=== PATIENT | male | born 1955 | race Caucasian/White ===

== ENCOUNTER 2021-07-09 10:12 | Outpatient (REF) | payer MEDICARE, BC, SELFPAY ==
[2021-07-09 11:25] LABS: Hematocrit 38.2 % (42-52); Hemoglobin 12.8 g/dl (14.0-18.0); Mean Corpuscular HGB Conc 33.5 g/dl (31.0-36.0); Mean Corpuscular Volume 92.5 fL (80-98); Platelet Count 258 X10*3/uL (160-400); Red Blood Count 4.13 X10*6/uL (4.60-5.80); Red Cell Distribution Width 12.8 % (11.0-16.0); White Blood Count 6.2 X10*3/uL (4.8-10.8)
[2021-07-09 11:43] LABS: Alanine Aminotransferase 21 U/L (0-40); Albumin Level 3.9 g/dL (3.5-5.0); Alkaline Phosphatase 86 U/L (39-117); Anion Gap 11 (12-20); Aspartate Amino Transferase 20 U/L (5-37); Bilirubin Total 0.7 mg/dL (0.0-1.0); Blood Urea Nitrogen 13 mg/dL (9-16); Calcium 9.1 mg/dL (8.4-10.2); Carbon Dioxide 28 mmol/L (22-29); Chloride 106 mmol/L (96-108); Cholesterol 156 mg/dL; Estimated Glomerular Filt Rate > 60; Glucose Fasting 140 mg/dL (60-99); HDL Cholesterol 49 mg/dL; LDL Cholesterol Calculated 97 mg/dl; Potassium 4.8 mmol/L (3.3-5.1); Sodium 140 mmol/L (135-145); Total Protein 6.3 g/dL (6.5-8.0); Triglycerides 52 mg/dL
[2021-07-09 12:03] LABS: Creatinine Urine 117.27 mg/dL; Microalbum/Creatinine Ratio Ur 200.3 ug/mg cr
[2021-07-09 12:08] LABS: Prostate Specific Antigen Scr 1.31 ng/mL (<0.05-4.0)
[2021-07-09 12:20] LABS: Estimated Average Glucose 163 mg/dL; Hemoglobin A1c % 7.3 %
== END 2021-07-09 10:13 | disposition home or self-care (01) ==
LOC: HO.HMGCLDS 10:12
PROVIDERS: PCP Internal Medicine; Visit Provider Internal Medicine
DX: Z00.00 Encounter for general adult medical examination without abnormal findings (principal); Z12.5 Encounter for screening for malignant neoplasm of prostate; E11.9 Type 2 diabetes mellitus without complications; E78.00 Pure hypercholesterolemia, unspecified; I10 Essential (primary) hypertension
CPT/HCPCS: 36415; 80053; 80061; 82043; 83036; 84153; 85027

== ENCOUNTER 2022-03-18 07:17 | Day surgery (SDC) | payer MEDICARE, BC, SELFPAY ==
[2022-03-12 13:30] VITALS: BMI 29.5
--- NOTE | 2022-03-17 11:46 | P.CONAN_ITS ---
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 Mother Heart disease Maternal Grandfather No problems noted. Maternal Grandmother No problems noted. Maternal Aunt No problems noted. Maternal Uncle No problems noted. Paternal Aunt No problems noted. Paternal Grandfather No problems noted. Paternal Grandmother No problems noted. Paternal Uncle No problems noted. Brother No problems noted. Brother No problems noted. Brother No problems noted. Brother No problems noted. Brother No problems noted. Sister No problems noted. Sister No problems noted. Son No problems noted. Son No problems noted. Son No problems noted. Son No problems noted. Surgical History Surgical History History of colonoscopy S/P drug eluting coronary stent placement Social History Social History Patient Tobacco Use Status: Former Tobacco user Quit Date: approx 20 yrs ago Tobacco use type: Cigarette Are you DNR?: No Advance Directives: No Advance Directives Information Provided: Yes Meds Allergies Allergy/AdvReac Type Severity Reaction Status Date / Time No Known Allergies Allergy Verified 07/08/21 11:59 Home Medications Medication Instructions Recorded Confirmed Last Taken Type carvedilol 12.5 mg tablet 12.5 mg PO BID 07/22/20 03/18/22 03/18/22 06:15 Histo ry insulin lispro 100 unit/mL unit subcut 07/22/20 07/08/21 Unknown History subcutaneous pen insulin lispro 100 unit/mL subcut 07/22/20 07/08/21 Unknown History subcutaneous solution lisinopril 5 mg tablet 5 mg PO DAILY 07/22/20 03/12/22 Unknown History blood sugar diagnostic (Contour #10 ea 07/08/21 07/08/21 Unknown History Next Test Strips) aspirin 81 mg tablet,delayed 81 mg PO DAILY 03/12/22 03/18/22 03/15/22 History release Exam Exam Date and Time: March 17, 2022 1146 Height,Weight and Vital Signs: Height 5 ft 8.5 in Weight 89.584 kg Assessment and Plan Assessment Anesthesia Assessment: Chart Reviewed
[2022-03-18 07:25] VITALS: BMI 29.9
[2022-03-18 08:05] VITALS: BP 140/67; PULSE 65; RESP 18; TEMP 36.1; O2SAT 100
[2022-03-18] MEDS: Lactated Ringers 1,000 ML 100 ML IVCONT (08:10)
--- NOTE | 2022-03-18 08:28 | P.CONAN_ITS ---
[facility] Active Problems Active Problems: All Active Problems (Updated 03/12/22 @ 13:52 by Masha Novoa RN) Annual physical exam (Acute) HTN (hypertension) (Acute) Hypercholesteremia (Acute) Diabetes (Acute) Past Medical History Medical History History of placement of stent in LAD coronary artery Mild anemia Myocardial infarct Retinopathy Family History Family History Father No problems noted. Mother Heart disease Maternal Grandfather No problems noted. Maternal Grandmother No problems noted. Maternal Aunt No problems noted. Maternal Uncle No problems noted. Paternal Aunt No problems noted. Paternal Grandfather No problems noted. Paternal Grandmother No problems noted. Paternal Uncle No problems noted. Brother No problems noted. Brother No problems noted. Brother No problems noted. Brother No problems noted. Brother No problems noted. Sister No problems noted. Sister No problems noted. Son No problems noted. Son No problems noted. Son No problems noted. Son No problems noted. Family history of problems with anesthesia: No Surgical History Surgical History History of colonoscopy S/P drug eluting coronary stent placement Social History Social History Patient Tobacco Use Status: Former Tobacco user Quit Date: approx 20 yrs ago Tobacco use type: Cigarette Are you DNR?: No Advance Directives: No Advance Directives Information Provided: Yes Meds Allergies Allergy/AdvReac Type Severity Reaction Status Date / Time No Known Allergies Allergy Verified 07/08/21 11:59 Active Medications: Current Medications Lactated Ringer's (Lr) 1,000 mls @ 100 mls/hr IVCONT .Q10H ASIMA Last Admin: 03/18/22 08:10 Dose: 100 mls/hr Sodium Biphosphate/Sodium Phosphate (Sodium Phosphate,[place]-Dibasic 133 Ml Enema) 133 ml SC ONCE PRN PRN Reason: Poor Colonoscopy Prep Results Home Medications Medication Instructions Recorded Confirmed Last Taken Type carvedilol 12.5 mg tablet 12.5 mg PO BID 07/22/20 03/18/22 03/18/22 06:15 History insulin lispro 100 unit/mL unit subcut 10/19/20 10/05/21 Unknown History subcutaneous pen insulin lispro 100 unit/mL subcut 07/22/20 07/08/21 Unknown History subcutaneous solution lisinopril 5 mg tablet 5 mg PO DAILY 07/22/20 03/12/22 Unknown History blood sugar diagnostic (Contour #10 ea 07/08/21 07/08/21 Unknown History Next Test Strips) aspirin 81 mg tablet,delayed 81 mg PO DAILY 03/12/22 03/18/22 03/15/22 History release Exam Exam Date and Time: March 18, 2022827 Height,Weight and Vital Signs: Height 5 ft 8.5 in Weight 90.718 kg Last Vital Signs Temp 97 F 03/18/22 08:05 Pulse 65 03/18/22 08:05 Resp 18 03/18/22 08:05 BP 140/67 H 03/18/22 08:05 Pulse Ox 100 03/18/22 08:05 O2 Del Method 03/18/22 08:05 Airway Mallampati Class: III TM Dist: >3cm Neck ROM: Full Denture: Upper and Lower Assessment and Plan Final Anesthetic Review Family History of Problems with Anesthesia: No Anesthetic Plan Anesthetic Plan: MAC: Disposition: Standard PACU
[2022-03-18 09:52] VITALS: BP 114/55; PULSE 71; RESP 18; TEMP 36.6; O2SAT 99
--- NOTE | 2022-03-18 09:52 | PM.OP ---
Brief Operative Note Date of Service: 03/18/22 Pre-op diagnosis: Screening Post-op diagnosis: other (Colon polyps) Procedure: Colonoscopy to the cecum with hot snare polypectomy of AC polyp with placement of 2 Resolution clips, and bx/removal of cecal polyp Surgeon: Milton Ramirez Anesthesia: MAC Was an Gas Leak Inspector Helper used for this Procedure?: No Estimated blood loss (mL): 2.0 Pathology: other (A. Cecal polyp B. Ascending colon polyp) Condition: stable Disposition: PACU
[2022-03-18 09:58] VITALS: BP 130/58; PULSE 68; RESP 18; TEMP 36.1; O2SAT 100
--- NOTE | 2022-03-18 10:14 | OP_ITS ---
SURGEON: Milton Ramirez MD INDICATIONS: The patient presents for evaluation of colorectal cancer screening and prior history of tubular adenoma of the colon. Full consent was obtained from him for this, including risks of bleeding and perforation. PREOPERATIVE DIAGNOSIS: POSTOPERATIVE DIAGNOSIS: PROCEDURE PERFORMED: Colonoscopy to cecum with biopsies and removal of polyp, and hot snare polypectomy with placement of Resolution Clips. ESTIMATED BLOOD LOSS: COMPLICATIONS: ANESTHESIA: Monitored anesthesia care. ASSISTANTS: SPECIMENS: PREOPERATIVE DIAGNOSES: Colorectal cancer screening and personal history of tubular adenoma of the colon. POSTOPERATIVE DIAGNOSES: Colorectal cancer screening and personal history of tubular adenoma of the colon, diverticulosis, and small internal hemorrhoids. DESCRIPTION OF PROCEDURE: The patient was placed in the left lateral decubitus position. The digital rectal exam revealed no abnormalities. The Olympus video pediatric colonoscope was entered into the rectum and advanced to the cecum with the assistance of abdominal wall pressure. Once in the cecum, I did identify cecal pouch with appendiceal orifice and a normal-appearing ileocecal valve. The entire cecum was well visualized. In the cecum was a flat approximately 4 or 5 mm polyp, which was removed completely with cold biopsy forceps. The remainder of the cecum, including the appendiceal orifice, appeared normal. The scope was then slowly withdrawn assessing all mucosal surfaces carefully. The ileocecal valve appeared normal. The preparation was excellent. In the proximal ascending colon was an approximately 8 mm polyp, which was removed by hot snare polypectomy and recovered by suction. The polypectomy site appeared clean, without any sign of residual polyp nor bleeding. Two Resolution Clips were applied to the polypectomy site given that he had to go back on aspirin. There was good deployment and good hemostasis. I did not visualize any other polyps, colitis, or angiodysplasia. There was a mild amount of sigmoid diverticulosis. In the rectum, scope was retroflexed visualizing small internal hemorrhoids, but no other pathology. The rectal mucosa appeared normal. Scope was straightened and withdrawn from the patient. He tolerated the procedure well and was returned to recovery area in stable condition. IMPRESSION: 1. Colon polyps. 2. Diverticulosis. 3. Internal hemorrhoids. PLAN: The results of the pathology will be checked. I would recommend a repeat colonoscopy in 5 years for surveillance. He was advised to not use fish oil for 1 week. He was advised to resume his aspirin within 48 hours. He will otherwise see me on a p.r.n. basis. This has been discussed with his . MD [facility]/JOEL / [phone]
[2022-03-18 10:35] LABS: Glucose, Whole Blood 87 mg/dL (60-115)
== END 2022-03-18 11:45 | disposition home or self-care (01) ==
PROVIDERS: PCP Internal Medicine; Visit Provider Internal Medicine
PROC: 0DJD8ZZ Inspection of Lower Intestinal Tract, Via Natural or Artificial Opening Endoscopic (ICD-10-PCS; CPT 45378; principal; 2022-03-18 08:30)
DX: Z12.11 Encounter for screening for malignant neoplasm of colon (principal); Z86.010 Personal history of colon polyps; D12.0 Benign neoplasm of cecum; D12.2 Benign neoplasm of ascending colon; K57.30 Diverticulosis of large intestine without perforation or abscess without bleeding; K64.8 Other hemorrhoids; I25.2 Old myocardial infarction; Z95.5 Presence of coronary angioplasty implant and graft; I10 Essential (primary) hypertension; D64.9 Anemia, unspecified; E78.5 Hyperlipidemia, unspecified; E10.319 Type 1 diabetes mellitus with unspecified diabetic retinopathy without macular edema; E10.40 Type 1 diabetes mellitus with diabetic neuropathy, unspecified; Z79.4 Long term (current) use of insulin; Z96.41 Presence of insulin pump (external) (internal); Z79.82 Long term (current) use of aspirin; Z79.899 Other long term (current) drug therapy; Z87.891 Personal history of nicotine dependence
CPT/HCPCS: 45385; 45380; 82947; 88305

== ENCOUNTER 2022-08-15 09:10 | Outpatient (REF) | payer MEDICARE, BC, SELFPAY ==
[2022-08-15 11:49] LABS: MANUAL DIFF FLAG NO
[2022-08-15 11:54] LABS: Basophils Absolute Auto 0.1 X10*3/uL (0.0-0.2); Basophils Percent Auto 0.8 % (0-2); Eosinophils Absolute Auto 0.2 X10*3/uL (0.0-0.4); Eosinophils Percent Auto 3.1 % (0-4); Hematocrit 36.2 % (42.0-52.0); Hemoglobin 12.4 g/dl (14.0-18.0); Imm Gran Abs Auto 0.02 X10*3/uL (0.00-0.03); Imm Gran Pct Auto 0.3 % (0.0-0.4); Lymphocytes Absolute Auto 1.4 X10*3/uL (1.2-4.9); Mean Corpuscular HGB Conc 34.3 g/dl (31.0-36.0); Mean Corpuscular Hemoglobin 31.5 pg (27.0-33.0); Mean Corpuscular Volume 91.9 fL (80.0-98.0); Mean Platelet Volume 11.3 fL (9.4-12.4); Monocytes Absolute Auto 0.4 X10*3/uL (0.1-1.2); Monocytes Percent Auto 6.6 % (2-11); Neutrophils Absolute Auto 4.2 x10*3/uL (2.0-8.3); Neutrophils Percent Auto 67.2 % (45-73); Platelet Count 227 X10*3/uL (160-400); Red Blood Count 3.94 X10*6/uL (4.60-5.80); Red Cell Distribution Width 12.6 % (11.0-16.0); White Blood Count 6.2 X10*3/uL (4.8-10.8)
[2022-08-15 11:57] LABS: Appearance Urine Clear; Color Urine Yellow; Glucose Urine UA Negative (Negative); Leukocyte Esterase Urine Negative (Negative); Nitrite Urine Negative (Negative); Specific Gravity - Urine 1.015 (1.005-1.025); UMIC TRIGGER UA YES; Urine Blood Small (1+) (Negative); Urine Ketones Negative (Negative); Urine Protein 100 (2+) mg/dL (Neg-Trace)
[2022-08-15 12:06] LABS: Estimated Average Glucose 163 mg/dL; Hemoglobin A1c % 7.3 %
[2022-08-15 12:17] LABS: Bacteria Urine None Seen (None Seen); Hyaline Casts Urine 0-2 /LPF (0-2); RBC Urine 0-2 /HPF (0-2); Squamous Epithelial Cell Urine 0-2 /HPF (0-2); WBC Urine 0-5 /HPF (0-5)
[2022-08-15 12:21] LABS: Creatinine Urine 161.44 mg/dL; Microalbum/Creatinine Ratio Ur 180.8 ug/mg cr
[2022-08-15 12:25] LABS: Alanine Aminotransferase 23 U/L (0-40); Albumin Level 3.9 g/dL (3.5-5.0); Alkaline Phosphatase 86 U/L (39-117); Anion Gap 14 (12-20); Aspartate Amino Transferase 23 U/L (5-37); Bilirubin Total 0.6 mg/dL (0.0-1.0); Blood Urea Nitrogen 16 mg/dL (9-16); Calcium 8.9 mg/dL (8.4-10.2); Carbon Dioxide 24 mmol/L (22-29); Chloride 104 mmol/L (96-108); Cholesterol 166 mg/dL; Estimated Glomerular Filt Rate > 60; Glucose Fasting 177 mg/dL (60-99); HDL Cholesterol 52 mg/dL; LDL Cholesterol Calculated 99 mg/dl; Potassium 4.4 mmol/L (3.3-5.1); Sodium 138 mmol/L (135-145); Total Protein 6.3 g/dL (6.5-8.0); Triglycerides 76 mg/dL
[2022-08-15 12:27] LABS: PSA,Total (Free>4and<10) 1.03 ng/mL (0.00-4.00)
== END 2022-08-15 09:11 | disposition home or self-care (01) ==
LOC: HO.HMGCLDS 09:10
PROVIDERS: PCP Internal Medicine; Visit Provider Internal Medicine
DX: Z00.00 Encounter for general adult medical examination without abnormal findings (principal); E11.9 Type 2 diabetes mellitus without complications; E78.00 Pure hypercholesterolemia, unspecified; I10 Essential (primary) hypertension; I21.9 Acute myocardial infarction, unspecified; Z12.5 Encounter for screening for malignant neoplasm of prostate
CPT/HCPCS: 36415; 80053; 80061; 81001; 82043; 83036; 84153; 85025

== ENCOUNTER 2023-02-13 10:11 | Outpatient (REF) | payer MEDICARE, BC, SELFPAY ==
[2023-02-13 11:30] LABS: MANUAL DIFF FLAG NO
[2023-02-13 11:32] LABS: Basophils Absolute Auto 0.1 X10*3/uL (0.0-0.2); Basophils Percent Auto 0.9 % (0-2); Eosinophils Absolute Auto 0.2 X10*3/uL (0.0-0.4); Eosinophils Percent Auto 2.6 % (0-4); Hematocrit 36.4 % (42.0-52.0); Hemoglobin 12.5 g/dl (14.0-18.0); Imm Gran Abs Auto 0.02 X10*3/uL (0.00-0.03); Imm Gran Pct Auto 0.3 % (0.0-0.4); Lymphocytes Absolute Auto 1.6 X10*3/uL (1.2-4.9); Lymphocytes Percent Auto 24.4 % (20-40); Mean Corpuscular HGB Conc 34.3 g/dl (31.0-36.0); Mean Corpuscular Hemoglobin 32.6 pg (27.0-33.0); Monocytes Absolute Auto 0.6 X10*3/uL (0.1-1.2); Monocytes Percent Auto 9.3 % (2-11); Neutrophils Absolute Auto 4.1 x10*3/uL (2.0-8.3); Neutrophils Percent Auto 62.5 % (45-73); Platelet Count 247 X10*3/uL (160-400); Red Blood Count 3.83 X10*6/uL (4.60-5.80); Red Cell Distribution Width 13.3 % (11.0-16.0); White Blood Count 6.6 X10*3/uL (4.8-10.8)
[2023-02-13 11:42] LABS: Estimated Average Glucose 163 mg/dL; Hemoglobin A1c % 7.3 %
[2023-02-13 11:57] LABS: Creatinine Urine 175.43 mg/dL; Microalbum/Creatinine Ratio Ur 87.2 ug/mg cr
[2023-02-13 12:11] LABS: Alanine Aminotransferase 21 U/L (0-40); Albumin Level 3.9 g/dL (3.5-5.0); Alkaline Phosphatase 83 U/L (39-117); Anion Gap 12 (12-20); Aspartate Amino Transferase 22 U/L (5-37); Bilirubin Total 0.9 mg/dL (0.0-1.0); Blood Urea Nitrogen 16 mg/dL (9-16); Calcium 9.2 mg/dL (8.4-10.2); Carbon Dioxide 28 mmol/L (22-29); Chloride 107 mmol/L (96-108); Cholesterol 168 mg/dL; Estimated Glomerular Filt Rate > 60; Glucose Fasting 152 mg/dL (60-99); HDL Cholesterol 52 mg/dL; Iron 115 mcg/dL (45-160); LDL Cholesterol Calculated 104 mg/dl; Percent Iron Saturation 42 % (15-50); Potassium 5.7 mmol/L (3.3-5.1); Sodium 141 mmol/L (135-145); Total Iron Binding Capacity 276 mcg/dL (228-428); Total Protein 6.1 g/dL (6.5-8.0); Triglycerides 61 mg/dL; Unsaturated Iron Binding 161 ug/dL
[2023-02-13 12:30] LABS: Folate 17.6 ng/mL (> or = 4.0); Vitamin B12 962 pg/mL (200-900)
== END 2023-02-13 10:12 | disposition home or self-care (01) ==
LOC: HO.HMGCLDS 10:11
PROVIDERS: PCP Internal Medicine; Visit Provider Internal Medicine
DX: D64.9 Anemia, unspecified (principal); E11.9 Type 2 diabetes mellitus without complications; E78.00 Pure hypercholesterolemia, unspecified; I10 Essential (primary) hypertension
CPT/HCPCS: 36415; 80053; 80061; 82043; 82607; 82746; 83036; 83540; 85025

== ENCOUNTER 2023-02-15 12:39 | Outpatient (REF) | payer MEDICARE, BC, SELFPAY ==
[2023-02-15 14:16] LABS: Anion Gap 11 (12-20); Blood Urea Nitrogen 17 mg/dL (9-16); Calcium 9.7 mg/dL (8.4-10.2); Carbon Dioxide 31 mmol/L (22-29); Chloride 103 mmol/L (96-108); Estimated Glomerular Filt Rate > 60; Glucose Random 166 mg/dL (60-115); Sodium 139 mmol/L (135-145)
== END 2023-02-15 12:40 | disposition home or self-care (01) ==
LOC: HO.HMGCLDS 12:39
PROVIDERS: PCP Internal Medicine; Visit Provider Internal Medicine
DX: E78.00 Pure hypercholesterolemia, unspecified (principal); I10 Essential (primary) hypertension; R80.9 Proteinuria, unspecified; E11.9 Type 2 diabetes mellitus without complications
CPT/HCPCS: 36415; 80048

== ENCOUNTER 2023-02-17 10:20 | Outpatient (REF) | payer MEDICARE, BC, SELFPAY ==
[2023-02-17 14:07] LABS: Potassium 5.3 mmol/L (3.3-5.1)
== END 2023-02-17 10:21 | disposition home or self-care (01) ==
LOC: HO.HMGCLDS 10:20
PROVIDERS: PCP Internal Medicine; Visit Provider Internal Medicine
DX: E87.5 Hyperkalemia (principal)
CPT/HCPCS: 36415; 84132

== ENCOUNTER 2023-02-25 11:25 | Outpatient (REF) | payer MEDICARE, BC, SELFPAY ==
[2023-02-25 13:59] LABS: Potassium 5.9 mmol/L (3.3-5.1)
== END 2023-02-25 11:26 | disposition home or self-care (01) ==
LOC: HO.HMGCLDS 11:25
PROVIDERS: PCP Internal Medicine; Visit Provider Internal Medicine
DX: E87.5 Hyperkalemia (principal)
CPT/HCPCS: 36415; 84132

== ENCOUNTER 2023-03-04 11:29 | Outpatient (REF) | payer MEDICARE, BC, SELFPAY ==
[2023-03-04 14:58] LABS: Potassium 5.5 mmol/L (3.3-5.1)
== END 2023-03-04 11:30 | disposition home or self-care (01) ==
LOC: HO.HMGCLDS 11:29
PROVIDERS: PCP Internal Medicine; Visit Provider Internal Medicine
DX: E87.5 Hyperkalemia (principal)
CPT/HCPCS: 36415; 84132

== ENCOUNTER 2023-03-11 11:50 | Outpatient (REF) | payer MEDICARE, BC, SELFPAY ==
[2023-03-11 14:21] LABS: Anion Gap 11 (12-20); Blood Urea Nitrogen 14 mg/dL (9-16); Calcium 9.5 mg/dL (8.4-10.2); Carbon Dioxide 30 mmol/L (22-29); Chloride 108 mmol/L (96-108); Estimated Glomerular Filt Rate > 60; Glucose Random 153 mg/dL (60-115); Potassium 4.9 mmol/L (3.3-5.1); Sodium 144 mmol/L (135-145)
== END 2023-03-11 11:51 | disposition home or self-care (01) ==
LOC: HO.HMGCLDS 11:50
PROVIDERS: PCP Internal Medicine; Visit Provider Internal Medicine
DX: E87.5 Hyperkalemia (principal)
CPT/HCPCS: 36415; 80048

== ENCOUNTER 2023-03-19 11:43 | Outpatient (REF) | payer MEDICARE, BC, SELFPAY ==
[2023-03-19 18:49] LABS: Anion Gap 17 (12-20); Blood Urea Nitrogen 12 mg/dL (9-16); Calcium 9.4 mg/dL (8.4-10.2); Carbon Dioxide 24 mmol/L (22-29); Chloride 107 mmol/L (96-108); Estimated Glomerular Filt Rate > 60; Glucose Random 196 mg/dL (60-115); Potassium 5.2 mmol/L (3.3-5.1); Sodium 143 mmol/L (135-145)
== END 2023-03-19 11:44 | disposition home or self-care (01) ==
LOC: HO.HMGCLDS 11:43
PROVIDERS: PCP Internal Medicine; Visit Provider Internal Medicine
DX: E87.5 Hyperkalemia (principal)
CPT/HCPCS: 36415; 80048

== ENCOUNTER 2023-03-25 09:46 | Outpatient (REF) | payer MEDICARE, BC, SELFPAY ==
[2023-03-25 11:54] LABS: Anion Gap 12 (12-20); Blood Urea Nitrogen 18 mg/dL (9-16); Calcium 9.3 mg/dL (8.4-10.2); Carbon Dioxide 29 mmol/L (22-29); Chloride 106 mmol/L (96-108); Estimated Glomerular Filt Rate > 60; Glucose Random 145 mg/dL (60-115); Potassium 5.1 mmol/L (3.3-5.1); Sodium 142 mmol/L (135-145)
== END 2023-03-25 09:47 | disposition home or self-care (01) ==
LOC: HO.HMGCLDS 09:46
PROVIDERS: PCP Internal Medicine; Visit Provider Internal Medicine
DX: E87.5 Hyperkalemia (principal)
CPT/HCPCS: 36415; 80048

== ENCOUNTER 2023-04-08 11:08 | Outpatient (REF) | payer MEDICARE, BC, SELFPAY ==
[2023-04-08 15:56] LABS: Alanine Aminotransferase 25 U/L (0-40); Alkaline Phosphatase 105 U/L (39-117); Anion Gap 16 (12-20); Aspartate Amino Transferase 24 U/L (5-37); Bilirubin Total 0.7 mg/dL (0.0-1.0); Blood Urea Nitrogen 20 mg/dL (9-16); Calcium 10.1 mg/dL (8.4-10.2); Carbon Dioxide 27 mmol/L (22-29); Chloride 104 mmol/L (96-108); Estimated Glomerular Filt Rate 59; Glucose Random 184 mg/dL (60-115); Potassium 6.3 mmol/L (3.3-5.1); Sodium 141 mmol/L (135-145)
[2023-04-08 16:57] LABS: B Type Natriuretic Peptide 51 pg/mL (<100)
== END 2023-04-08 11:09 | disposition home or self-care (01) ==
LOC: HO.HMGCLDS 11:08
PROVIDERS: PCP Internal Medicine; Visit Provider Internal Medicine
DX: Z13.89 Encounter for screening for other disorder (principal)
CPT/HCPCS: 36415; 80053; 83880

== ENCOUNTER 2023-04-08 18:23 | Emergency (ER) | payer MEDICARE, BC, SELFPAY ==
[2023-04-08 18:54] VITALS: BP 173/69; PULSE 75; RESP 16; TEMP 36.6; O2SAT 96; BMI 30.4
--- NOTE | 2023-04-08 18:55 | ED.GENADULT ---
HPI - General Adult General Chief complaint: Recheck/Abnormal Lab/Rx Stated complaint: Sent by Dr Time Seen by Provider: 04/08/23 19:56 Source: patient and family () Mode of arrival: ambulatory History of Present Illness HPI narrative: 67-year-old male with history a diabetes and hypertension presents with persistent issues of elevated potassium with intermittent adjustment and medications to help address the value. Most recently patient has been started on Lasix and given Kayexalate. Patient states that he woke up feeling fatigued this morning with some associated chest tightness but denies any muscle cramping. Related Data Home Medications Medication Instructions Recorded Confirmed carvedilol 12.5 mg tablet 12.5 mg PO BID 07/22/20 03/25/23 insulin lispro 100 unit/mL unit subcut 07/22/20 03/25/23 subcutaneous pen insulin lispro 100 unit/mL subcut 07/22/20 03/25/23 subcutaneous solution blood sugar diagnostic (Contour #10 ea 07/08/21 03/25/23 Next Test Strips) aspirin 81 mg tablet,delayed 81 mg PO DAILY 03/12/22 03/25/23 release Previous Rx's Medication Instructions Recorded atorvastatin 40 mg tablet 40 mg PO DAILY #90 tabs 08/05/22 atorvastatin 80 mg tablet 80 mg PO DAILY #90 tabs 02/15/23 furosemide 20 mg tablet (Lasix) 20 mg PO DAILY #60 tabs 03/22/23 Allergies Allergy/AdvReac Type Severity Reaction Status Date / Time No Known Allergies Allergy Verified 04/08/23 18:54 Review of Systems Review of Systems: Pertinent positives and negatives as stated in HPI [facility] Past Medical History Source: nursing notes reviewed Medical History Annual physical exam Diabetes History of placement of stent in LAD coronary artery HTN (hypertension) Hypercholesteremia Mild anemia Myocardial infarct Retinopathy Surgical History History of colonoscopy S/P drug eluting coronary stent placement Family History Family History Father No problems noted. Mother Heart disease Maternal Grandfather No problems noted. Maternal Grandmother No problems noted. Maternal Aunt No problems noted. Maternal Uncle No problems noted. Paternal Aunt No problems noted. Paternal Grandfather No problems noted. Paternal Grandmother No problems noted. Paternal Uncle No problems noted. Brother No problems noted. Brother No problems noted. Brother No problems noted. Brother No problems noted. Brother No problems noted. Sister No problems noted. Sister No problems noted. Son No problems noted. Son No problems noted. Son No problems noted. Son No problems noted. Social History Social History Housing: House Alcohol intake: never Patient Tobacco Use Status: Former Tobacco user Quit Date: approx 20 yrs ago Tobacco use type: Cigarette Smoked in Last 30 Days: No e-Cigarette/Vaping Use: Never Used Use of substances other than those prescribed or required for medical reasons: No Advance Directives: No Advance Directives Information Provided: No Current occupational status: retired Cognitive needs: No Hearing needs: No Vision needs: Yes Physical Exam ED Vital Signs: Vital Signs - 24 hr 04/08/23 18:54 04/08/23 19:57 Temperature 97.8 F 98.1 F Pulse Rate 75 64 Respiratory Rate 16 10 L Blood Pressure 173/69 H 139/59 L Pulse Oximetry 96 97 Oxygen Delivery Method Room Air Room Air BMI result Body Mass Index 30.4 VITAL SIGNS: Reviewed. GENERAL: Well developed, well nourished, in no acute distress. HEAD: Normocephalic/atraumatic EYES: PERRLA, EOMI EARS: Ext canals without abnormality NOSE: Nares patent bilateral OROPHARYNX: no oral lesions noted, posterior pharynx clear NECK: Supple, no adenopathy LUNGS: Normal breath sounds. No adventitious sounds or accessory muscle use. SpO2<97> CARDIOVASCULAR: Regular rate and rhythm without noted murmurs ABDOMEN: Soft, non-tender, non-distended with bowel sounds. MUSCULOSKELETAL: No tenderness, deformities, or effusions noted on gross inspection. EXTREMITIES: No cyanosis, clubbing or edema. SKIN: Inspection of the skin reveals no rashes NEUROLOGIC: Alert and oriented x 4. Strength and sensation to light touch were grossly intact x 4. Course Course Course Narrative: This is an RME: Additional HPI, ROS, PE not included below will be deferred to primary provider. This is a 59-bbce-oxw-male, with a past medical history of GA with stent, HTN, hypercholesteremia, diabetes and insulin pump, presenting to the emergency department with a complaint of hyperkalemia. He has been followed by his PCP for high potassium, found to be elevated at 5.2 on 03/19/23, improved at 5.1 on 03/25, today was 6.3. Reporting chest pressure. No palpitations. Plan: Labs, EKG, chest x-ray Medications Administered Discontinued Medications Generic Name Dose Route Start Last Admin Trade Name Freq PRN Reason Stop Dose Admin Sodium Zirconium Cyclosilicate 10 gm 04/08/23 19:55 04/08/23 20:14 Sodium Zirconium Cyclosilicate 10 Gm Powd.Pack PO 04/08/23 19:56 10 gm ONCE ONE Administration Medical Decision Making Medical Decision Making MDM Narrative: 67-year-old male with history and clinical presentation, DD X: Medication side effect, medication interactions, ALESSANDRA, ACS, pneumonia. Review of all investigations demonstrates chronically stable hematologic values. Chemistries demonstrate a down trend to the potassium levels with mild worsening of renal function, troponins are flat. Patient received 10 mg of Lokelma and repeat basic metabolic panel demonstrates a potassium 4.3 with mild improvement of renal function. He is otherwise discharged home in stable condition with instructions to follow-up with primary care provider do explicitly request a referral to follow-up with nephrology. In the interim he will continue to take the Kayexalate as well as the diuretic. Differential Diagnosis Please see the discussion above Admission/Observation Consideration of admission/observation: Escalation of care including admission/observation considered Lab Data Please see the discussion above 04/08/23 19:03 04/08/23 21:43 Labs: Lab Results 04/08/23 04/08/23 04/08/23 Range/Units 19:03 19:03 19:03 WBC 10.1 (4.8-10.8) X10*3/uL RBC 3.98 L (4.60-5.80) X10*6/uL Hgb 12.9 L (14.0-18.0) g/dl Hct 37.0 L (42.0-52.0) % MCV 93.0 (80.0-98.0) fL MCH 32.4 (27.0-33.0) pg MCHC 34.9 (31.0-36.0) g/dl RDW 12.3 (11.0-16.0) % Plt Count 237 (160-400) X10*3/uL MPV 10.5 (9.4-12.4) fL Immature Gran % (Auto) 0.3 (0.0-0.4) % Neut % (Auto) 65.0 (45-73) % Lymph % (Auto) 24.8 (20-40) % [place] % (Auto) 6.9 (2-11) % Eos % (Auto) 2.3 (0-4) % Baso % (Auto) 0.7 (0-2) % Lymph # (Auto) 2.5 (1.2-4.9) X10*3/uL [place] # (Auto) 0.7 (0.1-1.2) X10*3/uL Eos # (Auto) 0.2 (0.0-0.4) X10*3/uL Baso # (Auto) 0.1 (0.0-0.2) X10*3/uL Abs Immat Gran (auto) 0.03 (0.00-0.03) X10*3/uL Absolute Neuts (auto) 6.6 (2.0-8.3) x10*3/uL Absolute Nucleated RBC 0.000 (0.0-0.012) X10*3/uL Nucleated RBC % (auto) 0.0 (0.0-0.2) /100WBC Sodium 140 (135-145) mmol/L Potassium 5.4 H (3.3-5.1) mmol/L Chloride 104 (96-108) mmol/L Carbon Dioxide 25 (22-29) mmol/L Anion Gap 16 (12-20) BUN 25 H (9-16) mg/dL Creatinine 1.29 (0.5-1.4) mg/dL Estim Creat Clear Calc 59.1 Estimated GFR 55 Random Glucose 198 H (60-115) mg/dL Calcium 10.2 (8.4-10.2) mg/dL Magnesium 1.9 (1.6-2.6) mg/dL Total Bilirubin 0.5 (0.0-1.0) mg/dL Direct Bilirubin 0.1 (0.0-0.5) mg/dL AST 28 (5-37) U/L ALT 25 (0-40) U/L Alkaline Phosphatase 110 (39-117) U/L Troponin I High Sens 13.3 (<3.5-35.0) ng/L Total Protein 7.1 (6.5-8.0) g/dL Albumin 4.1 (3.5-5.0) g/dL 04/08/23 04/08/23 Range/Units 21:43 21:43 WBC (4.8-10.8) X10*3/uL RBC (4.60-5.80) X10*6/uL Hgb (14.0-18.0) g/dl Hct (42.0-52.0) % MCV (80.0-98.0) fL MCH (27.0-33.0) pg MCHC (31.0-36.0) g/dl RDW (11.0-16.0) % Plt Count (160-400) X10*3/uL MPV (9.4-12.4) fL Immature Gran % (Auto) (0.0-0.4) % Neut % (Auto) (45-73) % Lymph % (Auto) (20-40) % [place] % (Auto) (2-11) % Eos % (Auto) (0-4) % Baso % (Auto) (0-2) % Lymph # (Auto) (1.2-4.9) X10*3/uL [place] # (Auto) (0.1-1.2) X10*3/uL Eos # (Auto) (0.0-0.4) X10*3/uL Baso # (Auto) (0.0-0.2) X10*3/uL Abs Immat Gran (auto) (0.00-0.03) X10*3/uL Absolute Neuts (auto) (2.0-8.3) x10*3/uL Absolute Nucleated RBC (0.0-0.012) X10*3/uL Nucleated RBC % (auto) (0.0-0.2) /100WBC Sodium 140 (135-145) mmol/L Potassium 4.3 D (3.3-5.1) mmol/L Chloride 106 (96-108) mmol/L Carbon Dioxide 24 (22-29) mmol/L Anion Gap 14 (12-20) BUN 22 H (9-16) mg/dL Creatinine 1.05 (0.5-1.4) mg/dL Estim Creat Clear Calc 72.6 Estimated GFR > 60 Random Glucose 99 (60-115) mg/dL Calcium 9.7 (8.4-10.2) mg/dL Magnesium (1.6-2.6) mg/dL Total Bilirubin (0.0-1.0) mg/dL Direct Bilirubin (0.0-0.5) mg/dL AST (5-37) U/L ALT (0-40) U/L Alkaline Phosphatase (39-117) U/L Troponin I High Sens 16.6 (<3.5-35.0) ng/L Total Protein (6.5-8.0) g/dL Albumin (3.5-5.0) g/dL Independent Interpretation I performed an independent interpretation of an: EKG Interpretation: Normal sinus rhythm, HR-68, no STEMI, WA/QRS/QTC is within normal limits. Radiology Impression Radiologist Impression: There is no pneumonia, otherwise my interpretation is in agreement with radiology's impression. External Record Review External record reviewed: Outpatient record and Prior outpatient labs Chronic Conditions Patient?s care impacted by: Diabetes and Hypertension Discharge Plan Discharge Clinical Impression: Serum potassium elevated Patient Disposition: Home, Self-Care Instructions: Potassium Content of Foods List (ED), Hyperkalemia (ED) Additional Instructions: 1. Resume all home medications as prescribed, to include the Kayexalate. 2. Follow-up with your primary care provider and request a referral to nephrology for further management and direction regarding your renal function and potassium levels. Return to the ER for any worsening symptoms. Prescriptions: No Action atorvastatin 40 mg tablet 40 mg PO DAILY Qty: 90 3RF furosemide [Lasix] 20 mg tablet 20 mg PO DAILY Qty: 60 0RF Rx Instructions: 2 tabl po qd x 3 dayes, then 1 tabl qd aspirin 81 mg Tablet,Delayed Release (Dr/Ec) 81 mg PO DAILY insulin lispro 100 unit/mL solution subcut carvedilol 12.5 mg tablet 12.5 mg PO BID insulin lispro 100 unit/mL insulin pen subcut (DME) Contour Next Test Strips Strip See Rx Instructions Not Applicable .MEDSUPPLY Qty: 10 Rx Instructions: As directed atorvastatin 80 mg tablet 80 mg PO DAILY Qty: 90 1RF Referrals: Sara Zamarripa MD [Primary Care Provider] -
[2023-04-08 19:57] VITALS: BP 139/59; PULSE 64; RESP 10; TEMP 36.7; O2SAT 97
--- NOTE | 2023-04-08 20:18 | PC.NURSE ---
Pt A&Ox4, denies any pain, reports having constant chest pressure x 1 hour ago, states now gone . Pt denies any CP, palpitations or SOB. Pt placed on bedside monitor. Lung sounds clear, VSS. Med given as documented, will CTM.
== END 2023-04-08 22:46 | disposition home or self-care (01) ==
PROVIDERS: Emergency Provider Student in an Organized Health Care Education/Training Program; PCP Internal Medicine
DX: E87.5 Hyperkalemia (principal); E11.9 Type 2 diabetes mellitus without complications; I10 Essential (primary) hypertension; E78.00 Pure hypercholesterolemia, unspecified; D64.9 Anemia, unspecified; I25.2 Old myocardial infarction; Z87.891 Personal history of nicotine dependence; Z96.41 Presence of insulin pump (external) (internal); Z79.82 Long term (current) use of aspirin; Z79.4 Long term (current) use of insulin; Z79.899 Other long term (current) drug therapy
CPT/HCPCS: 36415; 71046; 80048; 80053; 80076; 83735; 83880; 84484; 85025; 93005; 99283; 99284

== ENCOUNTER 2023-04-15 10:17 | Outpatient (REF) | payer MEDICARE, BC, SELFPAY ==
[2023-04-15 13:51] LABS: Anion Gap 10 (12-20); Blood Urea Nitrogen 10 mg/dL (9-16); Calcium 9.1 mg/dL (8.4-10.2); Carbon Dioxide 28 mmol/L (22-29); Chloride 108 mmol/L (96-108); Estimated Glomerular Filt Rate > 60; Glucose Random 147 mg/dL (60-115); Potassium 4.5 mmol/L (3.3-5.1); Sodium 141 mmol/L (135-145)
== END 2023-04-15 10:18 | disposition home or self-care (01) ==
LOC: HO.HMGCLDS 10:17
PROVIDERS: PCP Internal Medicine; Visit Provider Internal Medicine
DX: I10 Essential (primary) hypertension (principal); E87.5 Hyperkalemia
CPT/HCPCS: 36415; 80048

== ENCOUNTER 2023-04-22 10:20 | Outpatient (REF) | payer MEDICARE, BC, SELFPAY ==
[2023-04-22 14:21] LABS: Estimated Average Glucose 146 mg/dL; Hemoglobin A1c % 6.7 %
[2023-04-22 14:36] LABS: Alanine Aminotransferase 22 U/L (0-40); Albumin Level 3.8 g/dL (3.5-5.0); Alkaline Phosphatase 72 U/L (39-117); Anion Gap 14 (12-20); Aspartate Amino Transferase 27 U/L (5-37); Blood Urea Nitrogen 27 mg/dL (9-16); Calcium 9.4 mg/dL (8.4-10.2); Carbon Dioxide 29 mmol/L (22-29); Chloride 102 mmol/L (96-108); Cholesterol 131 mg/dL; Estimated Glomerular Filt Rate > 60; Glucose Random 130 mg/dL (60-115); HDL Cholesterol 42 mg/dL; LDL Cholesterol Calculated 73 mg/dl; Potassium 4.7 mmol/L (3.3-5.1); Sodium 140 mmol/L (135-145); Total Protein 6.5 g/dL (6.5-8.0); Triglycerides 81 mg/dL
== END 2023-04-22 10:21 | disposition home or self-care (01) ==
LOC: HO.HMGCLDS 10:20
PROVIDERS: PCP Internal Medicine; Visit Provider Internal Medicine
DX: E11.9 Type 2 diabetes mellitus without complications (principal); I10 Essential (primary) hypertension; R80.9 Proteinuria, unspecified; E78.00 Pure hypercholesterolemia, unspecified
CPT/HCPCS: 36415; 80053; 80061; 83036

== ENCOUNTER 2023-08-05 12:56 | Outpatient (AMB) | payer MEDICARE, BC, SELFPAY ==
[2023-08-05 13:09] VITALS: BP 152/80; PULSE 66; O2SAT 98; BMI 30.1
--- NOTE | 2023-08-05 13:09 | MHC.PC.OV ---
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 Allergies No Known Allergies Allergy (Verified 08/05/23 13:09) Medication List - Last Reconciled 08/05/23 by Maritza Hoffman MD aspirin 81 mg PO DAILY atorvastatin 80 mg PO DAILY blood sugar diagnostic (Contour Next Test Strips) As directed carvedilol 12.5 mg PO BID cholecalciferol (vitamin D3) 25 mcg PO DAILY cyanocobalamin (vitamin B-12) 1,000 mcg PO DAILY furosemide (Lasix) 20 mg PO DAILY insulin lispro units subcut Tobacco use date assessed: 08/05/23 Fall risk assessment: No Falls in past year Last assessed Fall Risk: 08/05/23 Dental Screening Dental Screen Date: 08/05/23 Did you have a dental visit in the last 12 months?: No Did you have a dental problem in the last 6 months where you did not have access to dental care?: No Was dental information given to patient?: No 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 Mark Flores. [facility] Medical History (Updated 08/05/23 @ 13:40 by Maritza Hoffman MD) COVID-19 virus infection Annual physical exam Retinopathy History of placement of stent in LAD coronary artery Myocardial infarct Hypercholesteremia HTN (hypertension) Mild anemia Diabetes Surgical History History of colonoscopy S/P drug eluting coronary stent placement Family History Father No problems noted. Mother Heart disease Maternal Grandfather No problems noted. Maternal Grandmother No problems noted. Maternal Aunt No problems noted. Maternal Uncle No problems noted. Paternal Aunt No problems noted. Paternal Grandfather No problems noted. Paternal Grandmother No problems noted. Paternal Uncle No problems noted. Brother No problems noted. Brother No problems noted. Brother No problems noted. Brother No problems noted. Brother No problems noted. Sister No problems noted. Sister No problems noted. Son No problems noted. Son No problems noted. Son No problems noted. Son No problems noted. Social History (Updated 08/05/23 @ 13:41 by Maritza Hoffman MD) Housing: House Alcohol intake: never Patient Tobacco Use Status: Former Tobacco user Quit Date: approx 20 yrs ago Tobacco use type: Cigarette Years Smoked: 1989 e-Cigarette/Vaping Use: Never Used Second Hand Smoke Exposure: No Current occupational status: retired Cognitive needs: No Hearing needs: Yes Vision needs: Yes Questionnaire PHQ-9 Over the last 2 weeks, how often have you been bothered by any of the following problems? 1. Little interest or pleasure in doing things: not at all 2. Feeling down, depressed, or hopeless: not at all 3. Trouble falling or staying asleep, or sleeping too much: not at all 4. Feeling tired or having little energy: not at all 5. Poor appetite or overeating: not at all 6. Feeling bad about yourself - or that you are a failure or have let yourself or your family down: not at all 7. Trouble concentrating on things, such as reading the newspaper or watching television: not at all 8. Moving or speaking so slowly that other people could have noticed. Or the opposite - being so fidgety or restless that you have been moving around a lot more than usual: not at all 9. Thoughts that you would be better off or of hurting yourself in some way: not at all Total score: 0 Depression Screening Interpretation: Negative Depression Screening Done: Yes Source: Developed by Drs. Milton Jackson, Shawn Viramontes and colleagues, with an educational bernard from [employer]. Thrive Questionnaire Date Thrive assessed: 02/15/23 AUDIT C Alcohol Use Questionnaire (AUDIT-C) 1. How often do you have a drink containing alcohol?: Never 3. How often do you have six or more drinks on one occasion?: Never Total Score: 0 DION-7 AMB Questionnaire DION-7 Date DION - 7 assessed: 02/15/23 Source: Developed by Drs. Milton Jackson, Shawn Viramontes and colleagues, with an educational bernard from [employer]. Physical exam (Primary Care) Vital Signs: Last Vital Signs Pulse 66 08/05/23 13:09 BP 140/70 H 08/05/23 13:32 Pulse Ox 98 08/05/23 13:09 Oxygen Delivery Method Room Air 08/05/23 13:09 BMI result Body Mass Index 30.1 Tobacco/Smoking Status: Tobacco use Status Tobacco use date assessed 08/05/23 08/05/23 13:19 Patient Tobacco Use Status Former Tobacco user 08/05/23 13:11 Tobacco use type Cigarette 08/05/23 13:11 e-Cigarette/Vaping Use Never Used 08/05/23 13:11 PHQ-9: PHQ-9 Score PHQ-9: Total score 0 08/05/23 13:26 Depression Screening Interpretation: Negative Thrive Assessment: Date of Thrive Assessment Date Thrive assessed 02/15/23 08/05/23 13:11 Const General: alert; No acute distress Eyes Conjunctivae: conjunctivae normal Resp Auscultation: clear to auscultation bilaterally Cardio Rate: regular rate Rhythm: regular rhythm GI Inspection: Yes normal to inspection Extrem General: Yes normal to inspection and No edema Results AMB Hemoglobin A1c AMB Hemoglobin A1c 7.1 % Last Edit by Derba Quispe CMA on 08/05/23 13:37 Assessment and Plan Assessment & Plan (1) Diabetes mellitus type 1: Comment: Dr. Nagel Code(s): E10.9 - Type 1 diabetes mellitus without complications Plan: Decrease the amount of carbohydrate intake, pasta, bread, rice and potatoes are all sugar and that is aside from all the sweet stuff, remember that fruits are good but they are Sweet also. Hemoglobin A1c goal of less than 7.0 patient on an insulin pump and being followed up by Endocrinology (2) Coronary artery disease: Comment: Dr. Patel Code(s): I25.10 - Atherosclerotic heart disease of [place] coronary artery without angina pectoris Plan: Control the cholesterol, weight, blood pressure, diabetes April 2023 last blood work continue with aspirin (3) HTN (hypertension): Comment: BP< 130/80 Code(s): I10 - Essential (primary) hypertension Plan: Continue with blood pressure medication. Decrease salt intake and exercise on carvedilol 12.5 mg twice a day (4) Hypercholesteremia: Code(s): E78.00 - Pure hypercholesterolemia, unspecified Plan: Avoid fried foods, chicken skin, eggs, butter margarine, pastries and meat. Be it pork or beef they have a lot of cholesterol LDL goal of less than 70 and triglyceride of less than 150 April 2023 70 (5) Anemia: Code(s): D64.9 - Anemia, unspecified Plan: Chronic and stable colonoscopy 2021 (6) Hyperkalemia: Code(s): E87.5 - Hyperkalemia Plan: will be seeing nephrology soon (7) Cough: Comment: 05/2023 Code(s): R05.9 - Cough, unspecified Plan: Discussed about causes of cough. Starting with allergy problem advised to try allergy medication for couple of weeks to see if the cough gets better. Meanwhile a chest x-ray requested. Orders: Orders AMB Hemoglobin A1c Today Z13.9 - Encounter for screening, unspecified XR chest 2V Today R05.9 - Cough, unspecified Complete Blood Count Auto Diff Today E10.9 - Type 1 diabetes mellitus without complications Comprehensive Met. Panel Today E10.9 - Type 1 diabetes mellitus without complications Vitamin B12 and Folate Today E10.9 - Type 1 diabetes mellitus without complications Ferritin Today E10.9 - Type 1 diabetes mellitus without complications Microalbumin, Random (w Creat) Today E10.9 - Type 1 diabetes mellitus without complications, E11.65 - Type 2 diabetes mellitus with hyperglycemia Prostate Specific Antigen Scr Today E10.9 - Type 1 diabetes mellitus without complications Uric Acid Today E10.9 - Type 1 diabetes mellitus without complications B Type Natriuretic Peptide Today E10.9 - Type 1 diabetes mellitus without complications Free T4 (Free Thyroxine) Today E10.9 - Type 1 diabetes mellitus without complications Thyroid Stimulating Hormone Today E10.9 - Type 1 diabetes mellitus without complications Lipid Panel Today E10.9 - Type 1 diabetes mellitus without complications, E78.00 - Pure hypercholesterolemia, unspecified Creatinine Urine Today E10.9 - Type 1 diabetes mellitus without complications, E11.65 - Type 2 diabetes mellitus with hyperglycemia Coding Level of Care Code New Pt Level 4 (06914) Diagnoses Diabetes mellitus type 1 E10.9 Coronary artery disease I25.10 HTN (hypertension) I10 Hypercholesteremia E78.00 Anemia D64.9 Hyperkalemia E87.5 Cough R05.9
[2023-08-05 13:32] VITALS: BP 140/70
== END 2023-08-05 14:16 | disposition home or self-care (01) ==
PROVIDERS: PCP Internal Medicine; Visit Provider Internal Medicine
DX: E10.9 Type 1 diabetes mellitus without complications (principal); I25.10 Atherosclerotic heart disease of native coronary artery without angina pectoris; I10 Essential (primary) hypertension; E78.00 Pure hypercholesterolemia, unspecified; D64.9 Anemia, unspecified; E87.5 Hyperkalemia; R05.9 Cough, unspecified; Z13.9 Encounter for screening, unspecified
CPT/HCPCS: 83036; 99204; 99214

== ENCOUNTER 2023-08-13 11:18 | Outpatient (REF) | payer MEDICARE, BC, SELFPAY ==
--- NOTE | ~2023-08-13 | XR_ITS ---
EXAMINATION: XR CHEST CLINICAL INFORMATION: Cough, unspecified Patient states lingering cough after having Covid several months ago COMPARISON: Chest 04/08/2023 TECHNIQUE: 2 views of the chest were obtained. FINDINGS: No significant abnormality is noted involving the heart, lungs, mediastinum or soft tissues. There are mild degenerative changes of the thoracic spine. XR/XR chest 2V IMPRESSION: No acute cardiopulmonary disease.
== END 2023-08-13 11:19 | disposition home or self-care (01) ==
LOC: HO.XRAY 11:18
PROVIDERS: PCP Internal Medicine; Visit Provider Internal Medicine
DX: R05.9 Cough, unspecified (principal)
CPT/HCPCS: 71046

== ENCOUNTER 2023-09-07 09:47 | Outpatient (REF) | payer MEDICARE, BC, SELFPAY ==
[2023-09-07 13:17] LABS: MANUAL DIFF FLAG NO
[2023-09-07 13:28] LABS: Basophils Absolute Auto 0.1 X10*3/uL (0.0-0.2); Basophils Percent Auto 1.1 % (0-2); Eosinophils Absolute Auto 0.2 X10*3/uL (0.0-0.4); Eosinophils Percent Auto 2.7 % (0-4); Hematocrit 36.4 % (42.0-52.0); Hemoglobin 12.4 g/dl (14.0-18.0); Imm Gran Abs Auto 0.02 X10*3/uL (0.00-0.03); Imm Gran Pct Auto 0.4 % (0.0-0.4); Lymphocytes Absolute Auto 1.5 X10*3/uL (1.2-4.9); Lymphocytes Percent Auto 26.7 % (20-40); Mean Corpuscular HGB Conc 34.1 g/dl (31.0-36.0); Mean Corpuscular Volume 93.8 fL (80.0-98.0); Monocytes Absolute Auto 0.4 X10*3/uL (0.1-1.2); Monocytes Percent Auto 7.6 % (2-11); Neutrophils Absolute Auto 3.4 x10*3/uL (2.0-8.3); Neutrophils Percent Auto 61.5 % (45-73); Platelet Count 250 X10*3/uL (160-400); Red Blood Count 3.88 X10*6/uL (4.60-5.80); White Blood Count 5.5 X10*3/uL (4.8-10.8)
[2023-09-07 14:18] LABS: Alanine Aminotransferase 18 U/L (0-40); Albumin Level 3.9 g/dL (3.5-5.0); Alkaline Phosphatase 75 U/L (39-117); Anion Gap 10 (12-20); Aspartate Amino Transferase 22 U/L (5-37); Bilirubin Total 0.7 mg/dL (0.0-1.0); Blood Urea Nitrogen 19 mg/dL (9-16); Calcium 9.1 mg/dL (8.4-10.2); Carbon Dioxide 28 mmol/L (22-29); Chloride 106 mmol/L (96-108); Cholesterol 160 mg/dL (<200); Estimated Glomerular Filt Rate > 60; Glucose Random 98 mg/dL (60-115); HDL Cholesterol 50 mg/dL (>40); LDL Cholesterol Calculated 98 mg/dL (<100); Potassium 4.1 mmol/L (3.3-5.1); Sodium 140 mmol/L (135-145); Total Protein 6.7 g/dL (6.5-8.0); Triglycerides 64 mg/dL (<150); Uric Acid 6.7 mg/dL (3.4-7.0)
[2023-09-07 14:21] LABS: Folate 15.2 ng/mL (> or = 4.0); Vitamin B12 948 pg/mL (200-900)
[2023-09-07 14:22] LABS: Ferritin 123 ng/mL (20-250); Free T4 (Free Thyroxine) 0.94 ng/dL (0.71-1.85); Thyroid Stimulating Hormone 4.99 uIU/mL (0.32-4.0)
[2023-09-07 14:33] LABS: B Type Natriuretic Peptide 89 pg/mL (<100)
[2023-09-07 14:37] LABS: Creatinine Urine 53.94 mg/dL; Microalbum/Creatinine Ratio Ur 55.6 ug/mg cr (<30)
== END 2023-09-07 09:48 | disposition home or self-care (01) ==
LOC: HO.HMGCLDS 09:47
PROVIDERS: PCP Internal Medicine; Visit Provider Internal Medicine
DX: Z12.5 Encounter for screening for malignant neoplasm of prostate (principal); E11.65 Type 2 diabetes mellitus with hyperglycemia; E78.00 Pure hypercholesterolemia, unspecified
CPT/HCPCS: 36415; 80053; 80061; 82043; 82570; 82607; 82728; 82746; 83880; 84153; 84439; 84443; 84550; 85025

== ENCOUNTER 2023-10-25 15:50 | Outpatient (AMB) | payer MEDICARE, BC, SELFPAY ==
--- NOTE | 2023-10-25 15:53 | AM.OFFVISMDC ---
Intake Vital Signs 10/25/23 16:08 Height 5 ft 8 in Weight 198 lb BMI 30.1 BP 142/64 H Blood Pressure Location Lt brachial Position Sitting Pulse 69 Pulse Source Pulse Oximeter Pulse Oximetry (%) 99 Oxygen Delivery Method Room Air Intake Visit Reasons: AWV [id number] Intake Note: Patient is here for an Annual Wellness Visit. 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 Allergies No Known Allergies Allergy (Verified 10/25/23 15:54) Medication List - Last Reconciled 10/25/23 by Maritza Hoffman MD aspirin 81 mg PO DAILY atorvastatin 80 mg PO DAILY blood sugar diagnostic (Contour Next Test Strips) As directed carvedilol 12.5 mg PO BID cholecalciferol (vitamin D3) 25 mcg PO DAILY cyanocobalamin (vitamin B-12) 1,000 mcg PO DAILY furosemide (Lasix) 20 mg PO DAILY insulin lispro units subcut HPI AWV [id number] HPI Details 67-year-old obese male with type 1 diabetes mellitus coronary artery disease hypertension hypercholesterolemia chronic anemia coming in for physical exam last seen in August 2023. [facility] Medical History (Updated 10/25/23 @ 20:34 by Maritza Hoffman MD) COVID-19 virus infection Annual physical exam Retinopathy History of placement of stent in LAD coronary artery Myocardial infarct Hypercholesteremia HTN (hypertension) Mild anemia Diabetes Surgical History History of colonoscopy S/P drug eluting coronary stent placement Family History Father No problems noted. Mother Heart disease Maternal Grandfather No problems noted. Maternal Grandmother No problems noted. Maternal Aunt No problems noted. Maternal Uncle No problems noted. Paternal Aunt No problems noted. Paternal Grandfather No problems noted. Paternal Grandmother No problems noted. Paternal Uncle No problems noted. Brother No problems noted. Brother No problems noted. Brother No problems noted. Brother No problems noted. Brother No problems noted. Sister No problems noted. Sister No problems noted. Son No problems noted. Son No problems noted. Son No problems noted. Son No problems noted. Social History (Updated 08/05/23 @ 13:41 by Maritza Hoffman MD) Housing: House Alcohol intake: never Patient Tobacco Use Status: Former Tobacco user Quit Date: approx 20 yrs ago Tobacco use type: Cigarette Years Smoked: 1989 e-Cigarette/Vaping Use: Never Used Second Hand Smoke Exposure: No Current occupational status: retired Cognitive needs: No Hearing needs: Yes Vision needs: Yes Questionnaire Medicare Wellness Checkup [age] What gender do you identify with?: male During the past 4 weeks, how much have you been bothered by emotional problems such as feeling anxious, depressed, irritable, sad or downhearted, and blue?: not at all During the past 4 weeks, has your physical & emotional health limited your social activities with family, friends, neighbors, or groups?: not at all During the past 4 weeks, how much bodily pain have you generally had?: no pain During the past 4 weeks, was someone available to help you if you needed & wanted help?: yes, as much as I wanted During the past 4 weeks, what was the hardest physical activity you could do for at least 2 minutes?: heavy Can you get to places out of walking distance without help? (For eg., can you travel alone on buses, taxis or drive your car?): Yes Can you go shopping for groceries or clothes without someone's help?: Yes Can you prepare your own meals?: Yes Can you do your housework without help?: Yes Because of any health problems, do you need the help of another person with your personal care needs such as eating, bathing, dressing or getting around the house?: No Can you handle your own money without help?: Yes During the past 4 weeks, how would you rate your health in general?: very good During the past 4 weeks how have things been going for you?: pretty well Are you having difficulties driving your car?: no Do you always fasten your seat belt when you are in a car?: yes, usually During past 4 weeks, have you been bothered by the following: never: Falling or dizzy when standing up, Sexual problems?, Trouble eating well?, Teeth or denture problems?, Problems using the telephone? and Tiredness or fatigue? Have you fallen 2 or more times in the past year?: No Are you afraid of falling?: No Are you a smoker?: no During the past 4 weeks, how many drinks of wine, beer, or other alcoholic beverages did you have?: no alcohol at all Do you exercise for about 20 minutes 3 or more times a week?: yes, most of the time Have you been given information to help with the following?: no: Hazards in your house that might hurt you? and no: Keeping track of your medications? How often do you have trouble taking medicines the way you have been told to take them?: I always take medicine as prescribed How confident are you that you can control & manage most of your health problems?: very confident What is your race?: White PHQ-9 Over the last 2 weeks, how often have you been bothered by any of the following problems? 1. Little interest or pleasure in doing things: not at all 2. Feeling down, depressed, or hopeless: not at all 3. Trouble falling or staying asleep, or sleeping too much: not at all 4. Feeling tired or having little energy: not at all 5. Poor appetite or overeating: not at all 6. Feeling bad about yourself - or that you are a failure or have let yourself or your family down: not at all 7. Trouble concentrating on things, such as reading the newspaper or watching television: not at all 8. Moving or speaking so slowly that other people could have noticed. Or the opposite - being so fidgety or restless that you have been moving around a lot more than usual: not at all 9. Thoughts that you would be better off or of hurting yourself in some way: not at all Total score: 0 Depression Screening Interpretation: Negative Depression Screening Done: Yes 76042 - PHQ-9 Billing: Yes Source: Developed by Drs. Milton Jackson, Keesha Torres, Shawn Maguire and colleagues, with an educational bernard from [employer]. Review of Systems Const Denies poor appetite and Denies weakness Eyes Denies no additional complaints ENT Reports Normal hearing present, Denies dizziness, Denies nasal congestion, Denies tinnitus and Denies sore throat Card Denies chest pain, Denies syncope, Denies rapid heart rate and Denies dyspnea Resp Denies cough and Denies dyspnea GI Denies change in stool character, Reports constipation, Denies diarrhea, Denies nausea and Denies vomiting Denies dysuria and Denies urinary frequency Neuro Reports Normal hearing present, Denies confusion, Denies dizziness, Denies syncope and Denies weakness Psych Denies confusion Physical Exam Vital Signs: Last Vital Signs Pulse 69 10/25/23 16:08 BP 142/64 H 10/25/23 16:08 Pulse Ox 99 10/25/23 16:08 Oxygen Delivery Method Room Air 10/25/23 16:08 BMI result Body Mass Index 30.1 Const General: No confusion Orientation/consciousness: No confusion HEENT Head: Yes normocephalic Ears: external ears normal and TM's normal bilaterally Face and sinus: Yes normal facial exam Mouth: moist mucous membranes Throat: Yes tonsils normal Eyes Conjunctivae: conjunctivae normal Pupils: Equal, round and reactive pupils present and Pupil accommodation reflex normal Direct Ophthalmoscopy: normal light reflex Neck Neck: No lymphadenopathy Thyroid: Thyroid normal Chest Chest palpation & inspection: normal inspection of the chest Resp Effort & Inspection: normal respiratory effort and no audible wheezes Auscultation: clear to auscultation bilaterally, no crackles, no wheezes and lung sounds not diminished Cardio Rate: regular rate Rhythm: regular rhythm Peripheral pulses: radial pulses present and dorsalis pedis present GI Other: guaiac negative, prostate mild enlarged Palpation (GI): no masses Auscultation: normal bowel sounds and normoactive bowel sounds Other: pedal pulses and pin prick good Male General Exam: Yes normal external exam Skin General skin exam: no rashes or lesions noted Rashes: no rashes Neuro General: No confusion Cranial nerves: Yes Equal, round and reactive pupils present and Yes Normal hearing present Cognition (Neuro): normal cognition Gait exam (Neuro): Normal gait present Motor exam (neuro): 5/5 motor strength present throughout Deep tendon reflexes (DTR's): Right brachioradialis reflex intensity grade: 2+, Left brachioradialis reflex intensity grade: 2+, Right patellar reflex intensity grade: 2+ and Left patellar reflex intensity grade: 2+ Extrem General: No edema Results AMB Hemoglobin A1c AMB Hemoglobin A1c 7.6 % Last Edit by JOSEE Alcantar on 10/25/23 16:26 Results Reviewed Results Reviewed: Laboratory Last Values Hgb A1c (Clinic) 7.6 % (4.0-6.0) H 10/25/23 16:24 Assessment & Plan Assessment & Plan (1) Medicare annual wellness visit, subsequent: Code(s): Z00.00 - Encounter for general adult medical examination without abnormal findings Plan: Eat healthy, keep well hydrated and keep active (2) Diabetes mellitus type 1: Comment: Dr. Nagel Code(s): E10.9 - Type 1 diabetes mellitus without complications Qualifiers: Diabetes mellitus complication status: with hyperglycemia Qualified Code(s): E10.65 - Type 1 diabetes mellitus with hyperglycemia Plan: Decrease the amount of carbohydrate intake, pasta, bread, rice and potatoes are all sugar and that is aside from all the sweet stuff, remember that fruits are good but they are Sweet also. Continue on diet control hemoglobin A1c goal of less than 7.0 (3) Coronary artery disease: Comment: Dr. Patel Code(s): I25.10 - Atherosclerotic heart disease of [place] coronary artery without angina pectoris Qualifiers: Coronary Disease-Associated Artery/Lesion type: [place] artery [place] vs. transplanted heart: [place] heart Associated angina: without angina Qualified Code(s): I25.10 - Atherosclerotic heart disease of [place] coronary artery without angina pectoris Plan: Control the cholesterol, weight, blood pressure, diabetes continue with aspirin 81 mg once a day (4) Hypercholesteremia: Code(s): E78.00 - Pure hypercholesterolemia, unspecified Plan: Avoid fried foods, chicken skin, eggs, butter margarine, pastries and meat. Be it pork or beef they have a lot of cholesterol LDL goal of less than 70 and triglyceride of less than 150. On atorvastatin 80 mg once a day (5) HTN (hypertension): Comment: BP< 130/80 Code(s): I10 - Essential (primary) hypertension Qualifiers: Hypertension type: primary hypertension Qualified Code(s): I10 - Essential (primary) hypertension Plan: Continue with blood pressure medication. Decrease salt intake and exercise continue with carvedilol 12.5 mg twice a day (6) Anemia: Code(s): D64.9 - Anemia, unspecified Qualifiers: Anemia type: other cause Other causes of anemia: chronic disease, other Qualified Code(s): D63.8 - Anemia in other chronic diseases classified elsewhere Plan: Stable Orders: Orders AMB Hemoglobin A1c Today E11.9 - Type 2 diabetes mellitus without complications Hemoglobin A1c 3 Months E78.00 - Pure hypercholesterolemia, unspecified Lipid Panel 3 Months E78.00 - Pure hypercholesterolemia, unspecified Comprehensive Met. Panel 3 Months E78.00 - Pure hypercholesterolemia, unspecified Medications: New lisinopril 5 mg PO DAILY 30 tabs 5RF Quality Reporting (2019) Depression/Bipolar (159/160/161/177) PHQ-9: Total score: 0 Coding Level of Care Code Medicare Subsequent (G0439) Diagnoses Medicare annual wellness visit, subsequent Z00.00 Type 1 diabetes mellitus with hyperglycemia E10.65 Diabetes mellitus complication status: with hyperglycemia Coronary artery disease involving [place] coronary artery of [place] heart without angina pectoris I25.10 Coronary Disease-Associated Artery/Lesion type: [place] artery [place] vs. transplanted heart: [place] heart Associated angina: without angina Hypercholesteremia E78.00 Primary hypertension I10 Hypertension type: primary hypertension Anemia in other chronic diseases classified elsewhere D63.8 Anemia type: other cause Other causes of anemia: chronic disease, other
[2023-10-25 16:08] VITALS: BP 142/64; PULSE 69; O2SAT 99; BMI 30.1
== END 2023-10-25 17:33 | disposition home or self-care (01) ==
PROVIDERS: PCP Internal Medicine; Visit Provider Internal Medicine
DX: E11.9 Type 2 diabetes mellitus without complications (principal)
CPT/HCPCS: 83036; G0439

== ENCOUNTER 2024-02-08 15:16 | Outpatient (AMB) | payer MEDICARE, BC, SELFPAY ==
--- NOTE | 2024-02-08 15:19 | MHC.PC.OV ---
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 Operator Required: No Vamp Creaser: Not Required per policy Accompanied by: Self / Same As Patient Allergies No Known Allergies Allergy (Verified 02/08/24 15:20) Tobacco use date assessed: 02/08/24 Fall risk assessment: No Falls in past year Last assessed Fall Risk: 02/08/24 Dental Screening Dental Screen Date: 02/08/24 Did you have a dental visit in the last 12 months?: Yes Did you have a dental problem in the last 6 months where you did not have access to dental care?: No Was dental information given to patient?: Patient has dentist HPI DM HPI Details 68-year-old obese male with a history of diabetes mellitus type 1 coronary artery disease hypercholesterolemia hypertension last seen in October 2023. Patient's last colonoscopy was done in March 2022 5 years.. R lower back rash and notes changes and concern last month [facility] Medical History (Updated 02/08/24 @ 15:40 by Maritza Hoffman MD) Diabetes COVID-19 virus infection Annual physical exam Retinopathy History of placement of stent in LAD coronary artery Myocardial infarct Hypercholesteremia HTN (hypertension) Mild anemia Surgical History History of colonoscopy S/P drug eluting coronary stent placement Family History Father No problems noted. Mother Heart disease Maternal Grandfather No problems noted. Maternal Grandmother No problems noted. Maternal Aunt No problems noted. Maternal Uncle No problems noted. Paternal Aunt No problems noted. Paternal Grandfather No problems noted. Paternal Grandmother No problems noted. Paternal Uncle No problems noted. Brother No problems noted. Brother No problems noted. Brother No problems noted. Brother No problems noted. Brother No problems noted. Sister No problems noted. Sister No problems noted. Son No problems noted. Son No problems noted. Son No problems noted. Son No problems noted. Social History (Updated 08/05/23 @ 13:41 by Maritza Hoffman MD) Housing: House Alcohol intake: never Patient Tobacco Use Status: Former Tobacco user Quit Date: approx 20 yrs ago Tobacco use type: Cigarette Years Smoked: 1989 e-Cigarette/Vaping Use: Never Used Second Hand Smoke Exposure: No Current occupational status: retired Cognitive needs: No Hearing needs: Yes Vision needs: Yes Questionnaire Thrive Questionnaire Date Thrive assessed: 02/08/24 I am a: Patient What is your living situation today?: I have a steady place to live Within the past 12 months, did the food you bought not last and you didn't have the money to get more?: Never true Within the past 12 months, did you worry whether your food would run out before you got money to buy more?: Never true Do you have trouble paying for medicines?: No Do you have trouble getting transportation to medical appointments?: No Do you have trouble paying your heating and electricity bill?: No Do you have trouble taking care of your child, family member or friend?: No Do you have trouble with day-to-day activities such as bathing, preparing meals, shopping, managing finances, etc.?: No Are you currently unemployed and looking for a job?: No Are you interested in more education?: No Please select the resources that you would like help with: None THRIVE Score: 0 AUDIT C Alcohol Use Questionnaire (AUDIT-C) 1. How often do you have a drink containing alcohol?: Never 3. How often do you have six or more drinks on one occasion?: Never Total Score: 0 DION-7 AMB Questionnaire DION-7 Date DION - 7 assessed: 02/08/24 Feeling nervous, anxious, or on edge: 0 = Not at all Not being able to stop or control worryin = Not at all Worrying too much about different things: 0 = Not at all Trouble relaxin = Not at all Being so restless that it is hard to sit still: 0 = Not at all Becoming easily annoyed or irritable: 0 = Not at all Feeling afraid as if something awful might happen: 0 = Not at all Total DION-7 score (0-4 normal; 5-9 mild; 10-14 moderate; 15-21 severe): 0 Source: Developed by Drs. Milton Jackson, Keesha Torres, Shanw Maguire and colleagues, with an educational bernard from [employer]. Physical exam (Primary Care) Vital Signs: Last Vital Signs Pulse 70 02/08/24 15:20 BP 140/56 H 02/08/24 15:20 Pulse Ox 98 02/08/24 15:20 Oxygen Delivery Method Room Air 02/08/24 15:20 BMI result Body Mass Index 30.1 Tobacco/Smoking Status: Tobacco use Status Tobacco use date assessed 02/08/24 02/08/24 15:22 Patient Tobacco Use Status Former Tobacco user 02/08/24 15:22 Tobacco use type Cigarette 02/08/24 15:22 e-Cigarette/Vaping Use Never Used 02/08/24 15:22 Thrive Assessment: Date of Thrive Assessment Date Thrive assessed 02/08/24 02/08/24 15:28 Const General: alert; No acute distress Eyes Conjunctivae: conjunctivae normal Resp Auscultation: clear to auscultation bilaterally Cardio Rate: regular rate Rhythm: regular rhythm GI Inspection: Yes normal to inspection Extrem General: Yes normal to inspection and No edema Results AMB Hemoglobin A1c AMB Hemoglobin A1c 7.3 % Last Edit by JOSEE Padilla on 02/08/24 15:36 Results Reviewed Results Reviewed: Laboratory Last Values Hgb A1c (Clinic) 7.3 % (4.0-6.0) H 02/08/24 15:30 Assessment and Plan Assessment & Plan (1) Diabetes mellitus type 1: Comment: Dr. Nagel Code(s): E10.9 - Type 1 diabetes mellitus without complications Qualifiers: Diabetes mellitus complication status: with hyperglycemia Qualified Code(s): E10.65 - Type 1 diabetes mellitus with hyperglycemia Plan: Decrease the amount of carbohydrate intake, pasta, bread, rice and potatoes are all sugar and that is aside from all the sweet stuff, remember that fruits are good but they are Sweet also. Hemoglobin A1c goal of less than 7.0 presently on insulin ENDO (2) Coronary artery disease: Comment: Dr. Patel Code(s): I25.10 - Atherosclerotic heart disease of [place] coronary artery without angina pectoris Qualifiers: Associated angina: without angina Coronary Disease-Associated Artery/Lesion type: [place] artery [place] vs. transplanted heart: [place] heart Qualified Code(s): I25.10 - Atherosclerotic heart disease of [place] coronary artery without angina pectoris Plan: Control the cholesterol, weight, blood pressure, diabetes continue with aspirin 81 mg once a day (3) HTN (hypertension): Comment: BP< 130/80 Code(s): I10 - Essential (primary) hypertension Qualifiers: Hypertension type: primary hypertension Qualified Code(s): I10 - Essential (primary) hypertension Plan: Continue with blood pressure medication. Decrease salt intake and exercise has carvedilol 12.5 mg twice a day lisinopril 10 mg once a day PAtient just saw Dr. Patel and just increase lisinopril yesterday (4) Hypercholesteremia: Code(s): E78.00 - Pure hypercholesterolemia, unspecified Plan: Avoid fried foods, chicken skin, eggs, butter margarine, pastries and meat. Be it pork or beef they have a lot of cholesterol LDL goal of less than 70 and triglyceride of less than 150 September 2023 98 on atorvastatin 80 mg once a day (5) Actinic keratosis: Comment: right lower back Code(s): L57.0 - Actinic keratosis Orders: Orders AMB Hemoglobin A1c Today E10.65 - Type 1 diabetes mellitus with hyperglycemia Referrals Dermatology Referral L57.0 - Actinic keratosis Coding Level of Care Code Est Pt Level 4 (76041) Diagnoses Type 1 diabetes mellitus with hyperglycemia E10.65 Diabetes mellitus complication status: with hyperglycemia Coronary artery disease involving [place] coronary artery of [place] heart without angina pectoris I25.10 Associated angina: without angina Coronary Disease-Associated Artery/Lesion type: [place] artery [place] vs. transplanted heart: [place] heart Primary hypertension I10 Hypertension type: primary hypertension Hypercholesteremia E78.00 Actinic keratosis L57.0
[2024-02-08 15:20] VITALS: BP 140/56; PULSE 70; O2SAT 98; BMI 30.1
== END 2024-02-08 17:29 | disposition home or self-care (01) ==
PROVIDERS: PCP Internal Medicine; Visit Provider Internal Medicine
DX: E10.65 Type 1 diabetes mellitus with hyperglycemia (principal); I25.10 Atherosclerotic heart disease of native coronary artery without angina pectoris; I10 Essential (primary) hypertension; E78.00 Pure hypercholesterolemia, unspecified; L57.0 Actinic keratosis
CPT/HCPCS: 83036; 99214

== ENCOUNTER 2024-02-09 08:56 | Outpatient (REF) | payer MEDICARE, BC, SELFPAY ==
[2024-02-09 10:55] LABS: Estimated Average Glucose 163 mg/dL; Hemoglobin A1c % 7.3 % (<6.0)
[2024-02-09 11:23] LABS: Alanine Aminotransferase 29 U/L (0-40); Albumin Level 3.9 g/dL (3.5-5.0); Alkaline Phosphatase 74 U/L (39-117); Anion Gap 13 (12-20); Aspartate Amino Transferase 28 U/L (5-37); Bilirubin Total 0.6 mg/dL (0.0-1.0); Blood Urea Nitrogen 17 mg/dL (9-16); Calcium 9.6 mg/dL (8.4-10.2); Carbon Dioxide 27 mmol/L (22-29); Chloride 107 mmol/L (96-108); Cholesterol 150 mg/dL (<200); Estimated Glomerular Filt Rate > 60; Glucose Random 127 mg/dL (60-115); HDL Cholesterol 49 mg/dL (>40); LDL Cholesterol Calculated 86 mg/dL (<100); Potassium 5.3 mmol/L (3.3-5.1); Sodium 142 mmol/L (135-145); Total Protein 6.7 g/dL (6.5-8.0); Triglycerides 75 mg/dL (<150)
== END 2024-02-09 08:57 | disposition home or self-care (01) ==
LOC: HO.HMGCLDS 08:56
PROVIDERS: PCP Internal Medicine; Visit Provider Internal Medicine
DX: E78.00 Pure hypercholesterolemia, unspecified (principal)
CPT/HCPCS: 36415; 80053; 80061; 83036

== ENCOUNTER 2024-06-19 16:49 | Outpatient (AMB) | payer MEDICARE, BC, SELFPAY ==
[2024-06-19 16:52] VITALS: BP 142/60; PULSE 74; O2SAT 97; BMI 29.9
--- NOTE | 2024-06-19 16:52 | A.OFFPC_ITS ---
Vital Signs 06/19/24 16:52 Height 5 ft 8 in Weight 196 lb 6 oz BMI 29.9 BP 142/60 H Blood Pressure Location Lt brachial Position Sitting Pulse 74 Pulse Source Pulse Oximeter Pulse Oximetry (%) 97 Oxygen Delivery Method Room Air Intake Visit Reasons: Coronary artery disease Clinical Statistics Manager Required: No Accompanied by: Self / Same As Patient Allergies No Known Allergies Allergy (Verified 06/19/24 17:06) Medication List - Last Reconciled 06/19/24 by Maritza Hoffman MD aspirin 81 mg PO DAILY atorvastatin 80 mg PO DAILY blood sugar diagnostic (Contour Next Test Strips) As directed carvedilol 12.5 mg PO BID cholecalciferol (vitamin D3) 25 mcg PO DAILY cyanocobalamin (vitamin B-12) 1,000 mcg PO DAILY furosemide (Lasix) 20 mg PO DAILY insulin lispro units subcut lisinopril 20 mg PO DAILY Tobacco use date assessed: 02/08/24 Fall risk assessment: No Falls in past year Last assessed Fall Risk: 06/19/24 Dental Screening Dental Screen Date: 02/08/24 HPI Coronary artery disease HPI Details 68-year-old overweight male with diabete s mellitus type 1 coronary artery disease hypertension hypercholesterolemia last seen in February 2024. Patient is up-to-date with colonoscopy 03/23/2022 5 years. Patient follows up with en docrinology seen in May 18 pump settings goal is less than 8 patient is up-to-date with Ophthalmology also seen in March no has proliferative retinopathy no edema advised to see retinal evaluation by Dr. Kebede [facility] Medical History (Updated 02/08/24 @ 15:40 by Maritza Hoffman MD) Diabetes COVID-19 virus infection Annual physical exam Retinopathy History of placement of stent in LAD coronary artery Myocardial infarct Hypercholesteremia HTN (hypertension) Mild anemia Surgical History History of colonoscopy S/P drug eluting coronary stent placement Family History Father No problems noted. Mother Heart disease Maternal Grandfather No problems noted. Maternal Grandmother No problems noted. Maternal Aunt No problems noted. Maternal Uncle No problems noted. Paternal Aunt No problems noted. Paternal Grandfather No problems noted. Paternal Grandmother No problems noted. Paternal Uncle No problems noted. Brother No problems noted. Brother No problems noted. Brother No problems noted. Brother No problems noted. Brother No problems noted. Sister No problems noted. Sister No problems noted. Son No problems noted. Son No problems noted. Son No problems noted. Son No problems noted. Social History Housing: House Alcohol intake: never Patient Tobacco Use Status: Former Tobacco user Tobacco use type: Cigarette Years Smoked: 1989 e-Cigarette/Vaping Use: Never Used Second Hand Smoke Exposure: No Current occupational status: retired Cognitive needs: No Hearing needs: Yes Vision needs: Yes Questionnaire Thrive Questionnaire Date Thrive assessed: 02/08/24 Are you currently unemployed and looking for a job?: No DION-7 AMB Questionnaire DION-7 Date DION - 7 assessed: 02/08/24 Source: Developed by Drs. Milton Jackson, Keesha Torres, Shawn Maguire and colleagues, with an educational bernard from [employer]. Physical exam (Primary Care) Vital Signs: Last Vital Signs Pulse 74 06/19/24 16:52 BP 142/60 H 06/19/24 16:52 Pulse Ox 97 06/19/24 16:52 Oxygen Delivery Method Room Air 06/19/24 16:52 BMI result Body Mass Index 29.9 Tobacco/Smoking Status: Tobacco use Status Tobacco use date assessed 02/08/24 06/19/24 16:53 Patient Tobacco Use Status Former Tobacco user 06/19/24 16:53 Tobacco use type Cigarette 06/19/24 16:53 e-Cigarette/Vaping Use Never Used 06/19/24 16:53 Thrive Assessment: Date of Thrive Assessment Date Thrive assessed 02/08/24 06/19/24 16:53 Const General: alert; No acute distress Eyes Conjunctivae: conjunctivae normal Resp Auscultation: clear to auscultation bilaterally Cardio Rate: regular rate Rhythm: regular rhythm GI Inspection: Yes normal to inspection Extrem General: Yes normal to inspection and No edema Assessment and Plan Assessment & Plan (1) Diabetes mellitus type 1: Comment: Dr. Nagel Code(s): E10.9 - Type 1 diabetes mellitus without complications Qualifiers: Diabetes mellitus complication status: with hyperglycemia Qualified Code(s): E10.65 - Type 1 diabetes mellitus with hyperglycemia Plan: Decrease the amount of carbohydrate intake, pasta, bread, rice and potatoes are all sugar and that is aside from all the sweet stuff, remember that fruits are good but they are Sweet also. Patient is being followed up by Endocrinology on the insulin pump hemoglobin A1c goal of less than 8 (2) HTN (hypertension): Comment: BP< 130/80 Code(s): I10 - Essential (primary) hypertension Qualifiers: Hypertension type: primary hypertension Qualified Code(s): I10 - Essential (primary) hypertension Plan: Continue with blood pressure medication. Decrease salt intake and exercise patient is on lisinopril 10 mg once a day carvedilol 12.5 mg twice a day (3) Hypercholesteremia: Code(s): E78.00 - Pure hypercholesterolemia, unspecified Plan: Avoid fried foods, chicken skin, eggs, butter margarine, pastries and meat. Be it pork or beef they have a lot of cholesterol on atorvastatin 80 mg once a day goal is less than 70 (4) Coronary artery disease: Comment: Dr. Patel Code(s): I25.10 - Atherosclerotic heart disease of [place] coronary artery without angina pectoris Qualifiers: Coronary Disease-Associated Artery/Lesion type: [place] artery [place] vs. transplanted heart: [place] heart Associated angina: without angina Qualified Code(s): I25.10 - Atherosclerotic heart disease of [place] coronary artery without angina pectoris Plan: Control the cholesterol, weight, blood pressure, diabetes continue with aspirin 81 mg once a day Orders: Orders Complete Blood Count Auto Diff Today I25.10 - Atherosclerotic heart disease of [place] coronary artery without angina pectoris Comprehensive Met. Panel Today I25.10 - Atherosclerotic heart disease of [place] coronary artery without angina pectoris Free T4 (Free Thyroxine) Today I25.10 - Atherosclerotic heart disease of [place] coronary artery without angina pectoris Lipid Panel Today E78.00 - Pure hypercholesterolemia, unspecified, I25.10 - Atherosclerotic heart disease of [place] coronary artery without angina pectoris Ferritin Today I25.10 - Atherosclerotic heart disease of [place] coronary artery without angina pectoris Creatinine Urine Today E11.65 - Type 2 diabetes mellitus with hyperglycemia, I25.10 - Atherosclerotic heart disease of [place] coronary artery without angina pectoris Microalbumin, Random (w Creat) Today E11.65 - Type 2 diabetes mellitus with hyperglycemia, I25.10 - Atherosclerotic heart disease of [place] coronary artery without angina pectoris IRON PROFILE Today I25.10 - Atherosclerotic heart disease of [place] coronary artery without angina pectoris Reticulocyte Count Today I25.10 - Atherosclerotic heart disease of [place] coronary artery without angina pectoris Hemoglobin A1c Today I25.10 - Atherosclerotic heart disease of [place] coronary artery without angina pectoris Thyroid Stimulating Hormone Today I25.10 - Atherosclerotic heart disease of [place] coronary artery without angina pectoris Vitamin B12 and Folate Today I25.10 - Atherosclerotic heart disease of [place] coronary artery without angina pectoris Prostate Specific Antigen Scr Today I25.10 - Atherosclerotic heart disease of [place] coronary artery without angina pectoris Medications: New lisinopril 20 mg PO DAILY 90 tabs 1RF I10 - Essential (primary) hypertension Coding Level of Care Code Est Pt Level 4 (79679) Diagnoses Type 1 diabetes mellitus with hyperglycemia E10.65 Diabetes mellitus complication status: with hyperglycemia Primary hypertension I10 Hypertension type: primary hypertension Hypercholesteremia E78.00 Coronary artery disease involving [place] coronary artery of [place] heart without angina pectoris I25.10 Coronary Disease-Associated Artery/Lesion type: [place] artery [place] vs. transplanted heart: [place] heart Associated angina: without angina
== END 2024-06-19 17:46 | disposition home or self-care (01) ==
PROVIDERS: PCP Internal Medicine; Visit Provider Internal Medicine
DX: E10.65 Type 1 diabetes mellitus with hyperglycemia (principal); I10 Essential (primary) hypertension; E78.00 Pure hypercholesterolemia, unspecified; I25.10 Atherosclerotic heart disease of native coronary artery without angina pectoris

== ENCOUNTER → 2024-06-19 16:49 | Outpatient (BNVA) | payer MEDICARE, BC, SELFPAY | PROVIDERS: PCP Internal Medicine; Visit Provider Internal Medicine | DX: I25.10 Atherosclerotic heart disease of native coronary artery without angina pectoris (principal); E10.65 Type 1 diabetes mellitus with hyperglycemia; I10 Essential (primary) hypertension; E78.00 Pure hypercholesterolemia, unspecified | CPT/HCPCS: 99212 ==

== ENCOUNTER 2024-06-20 09:17 | Outpatient (REF) | payer MEDICARE, BC, SELFPAY ==
[2024-06-20 13:38] LABS: MANUAL DIFF FLAG NO
[2024-06-20 13:48] LABS: Basophils Absolute Auto 0.1 X10*3/uL (0.0-0.2); Eosinophils Absolute Auto 0.2 X10*3/uL (0.0-0.4); Eosinophils Percent Auto 2.4 % (0-4); Hematocrit 37.2 % (42.0-52.0); Hemoglobin 12.7 g/dl (14.0-18.0); Imm Gran Abs Auto 0.02 X10*3/uL (0.00-0.03); Imm Gran Pct Auto 0.3 % (0.0-0.4); Immature Retic Fraction 8.4 % (2.3-13.4); Lymphocytes Absolute Auto 1.6 X10*3/uL (1.2-4.9); Lymphocytes Percent Auto 25.9 % (20-40); Mean Corpuscular HGB Conc 34.1 g/dl (31.0-36.0); Mean Corpuscular Hemoglobin 32.7 pg (27.0-33.0); Mean Corpuscular Volume 95.9 fL (80.0-98.0); Mean Platelet Volume 11.2 fL (9.4-12.4); Monocytes Absolute Auto 0.4 X10*3/uL (0.1-1.2); Monocytes Percent Auto 5.7 % (2-11); Neutrophils Percent Auto 64.7 % (45-73); Platelet Count 251 X10*3/uL (160-400); Red Blood Count 3.88 X10*6/uL (4.60-5.80); Retic HGB Equivalent 36.3 pg (30.0-35.0); White Blood Count 6.1 X10*3/uL (4.8-10.8)
[2024-06-20 14:08] LABS: Estimated Average Glucose 166 mg/dL; Hemoglobin A1c % 7.4 % (<6.0)
[2024-06-20 14:30] LABS: Alanine Aminotransferase 21 U/L (0-40); Albumin Level 3.9 g/dL (3.5-5.0); Alkaline Phosphatase 83 U/L (39-117); Anion Gap 14 (12-20); Aspartate Amino Transferase 22 U/L (5-37); Bilirubin Total 0.8 mg/dL (0.0-1.0); Blood Urea Nitrogen 17 mg/dL (9-16); Calcium 9.7 mg/dL (8.4-10.2); Carbon Dioxide 26 mmol/L (22-29); Chloride 107 mmol/L (96-108); Cholesterol 162 mg/dL (<200); Estimated Glomerular Filt Rate > 60; Ferritin 113 ng/mL (20-250); Free T4 (Free Thyroxine) 0.93 ng/dL (0.71-1.85); Glucose Random 171 mg/dL (60-115); HDL Cholesterol 50 mg/dL (>40); Iron 132 mcg/dL (45-160); LDL Cholesterol Calculated 95 mg/dL (<100); Percent Iron Saturation 46 % (15-50); Potassium 5.4 mmol/L (3.3-5.1); Sodium 142 mmol/L (135-145); Thyroid Stimulating Hormone 4.85 uIU/mL (0.32-4.0); Total Iron Binding Capacity 285 mcg/dL (228-428); Total Protein 6.7 g/dL (6.5-8.0); Triglycerides 86 mg/dL (<150); Unsaturated Iron Binding 153 ug/dL
[2024-06-20 14:39] LABS: Folate 14.8 ng/mL (> or = 4.0); Prostate Specific Antigen Scr 1.67 ng/mL (<0.05-4.0); Vitamin B12 754 pg/mL (200-900)
[2024-06-20 14:45] LABS: Creatinine Urine 71.25 mg/dL; Microalbum/Creatinine Ratio Ur 143.1 ug/mg cr (<30)
== END 2024-06-20 09:18 | disposition home or self-care (01) ==
LOC: HO.HMGCLDS 09:17
PROVIDERS: PCP Internal Medicine; Visit Provider Internal Medicine
DX: I25.10 Atherosclerotic heart disease of native coronary artery without angina pectoris (principal); E78.00 Pure hypercholesterolemia, unspecified; E11.65 Type 2 diabetes mellitus with hyperglycemia; Z12.5 Encounter for screening for malignant neoplasm of prostate
CPT/HCPCS: 36415; 80053; 80061; 82043; 82570; 82607; 82728; 82746; 83036; 83540; 84153; 84439; 84443; 85025; 85045

== ENCOUNTER 2024-09-29 09:18 | Outpatient (REF) | payer MEDICARE, BC, SELFPAY ==
--- OUTSIDE RECORDS SUMMARY | 2024-09-29 09:22 | XMS_ITS | Patient Health Record ---
Author Organization [facility] Address [address] [place] [address] Care Team Providers Care Export Freight Specialist Name Role Phone Sara Zamarripa MD Primary Care Provider Milton Blanca Unavailable [phone] ALLERGIES No Known Allergies REASON FOR REFERRAL No Information MEDICATIONS Medication SIG (Take, Route, Frequency, Duration) Notes Start Date End Date Status Multivitamins Active Iron Not-Taking Vitamin D Active Atorvastatin Calcium 40 MG 1 tablet Oral ly Once a day for 30 day(s) Active HumaLOG Active Coreg Active Lisinopril Active Aspir-81 Active Fish Oil Active Vitamin E Active Vitamin B 12 Active IMMUNIZATIONS Vaccine Route Administration Date Status Comme nts Influenza Unknown 07/22/2021 Administered SOCIAL HISTORY Sex Assigned At : Social History Observation Description Sex Assigned At Unknown PROBLEMS Problem Type ICD Code Onset Dates Problem Status W/U Status Risk SNOMED Code Notes Problem Encounter for screening for malignant neoplasm of colon (Z12.11) Active confirmed Screening for malignant neoplasm of colon (874788271) Problem Personal history of colonic polyps (Z86.010) Active confirmed History of poly p of colon (770142159) Problem Encounter for other preprocedural examination (Z01.818) Active confirmed Pre-procedure evaluation check (003619869) Problem senior living (current) use of aspirin (Z79.82) Active confirmed Long-term c urrent use of antiplatelet drug (740383917661176) Problem Diverticulosis of colon (K57.30) Active confirmed Diverticulosi s of colon (594665670) PLAN OF TREATMENT Pending Test Test Name Order Date Pathology 03/18/2022 Future Test Test Name Order Date COLONOSCOPY 03/09/2013 COLONOSCOPY 02/13/2022 Insurance Providers Payer Name Payer Address Payer Phone Subscriber Number Group Number Insured Name Patient Relationship to Insured Coverage Start Date Coverage End Date MEDICARE OF [place] [address] [place] [address] [id number] ANJALILILLY WARRENARD Self - patient is the insured [facility] [address] [place], [place] [id number] LILLY ALBAARD Self - patient is the insured MEDICAL (GENERAL) HISTORY Medical History History ICD Code Colonoscopy 02/07/2007-1 sma ll tubular adenoma removed-sigmoid diverticuloosis and internal hemorrhoids noted as well IDDM--has an Insulin pump Hyperlipidemia IA 09/2007--has 1 stent--no problems sin ce Denies CVA,Lung disease,renal disease Negative colonoscopy in 05/2013 Surgical History Surgery Date(Month/Year)
--- OUTSIDE RECORDS SUMMARY | 2024-09-29 09:22 | XMS_ITS | Continuity of Care Document ---
Author Organization [facility] Address [address] [place] [id number]- Care Team Providers Care Medical Assembly Name Role Phone Po Maritza SANCHEZ Primary Care Physician Encounter [facility] Date(s): 08/22/24 - 09/21/24 [facility] [address] [place] [id number] Encounter Type: Triage Allergies, Adverse Reactions, Alerts No Known Allergies Medications Aspirin Chew Tablet = 81 mg, Chew, Daily, # 30, 11 Refills, to prevent heart attack, 09/28/08 10:09:05 AM EST Start Date: 09/28/08 Status: Ordered Quantity: 30.0 Unit: Repeat number: 12 atorvastatin 40 mg oral tablet TK 1 T PO QD Start Date: 03/11/17 Status: Ordered Repeat number: 1 atorvastatin 80 mg oral tablet 90 each, 0 Refill(s), TAKE 1 TABLET BY MOUTH DAILY, 0 Refills, 08/22/24 10:02:00 AM EST, Partial fill upon patient request if the prescription is for a schedule II opioid drug. Start Date: 08/22/24 Status: Ordered Repeat number: 1 Baqsimi Two Pack 3 mg nasal powder See Instructions, 3 mg Once intranasal for sevre hypoglycemia, # 1 each, 2 Refills, Soft Stop, 05/18/24 5:39:00 PM EDT, [facility] #[id number], Partial fill upon patient request if the prescription is for a schedule II opioid drug., 172.7, cm, 05/18/24 10:10:00 EDT, Height Start Date: 05/18/24 Status: Ordered Quantity: 1.0 Unit: each Repeat number: 3 carvedilol 12.5 mg oral tablet See Instructions, TAKE 1 TABLET BY MOUTH TWICE DAILY BEFORE BREAKFAST AND DINNER, # 180 tablet, Refills 3, Maintenance, 11/01/23 7:31:00 AM EST, Instructions Replace Required Details, Route to Pharmacy Electronically, [facility] #[id number], 172.7, cm, 07/30/23 14:19:00 EDT, Height Start Date: 11/01/23 Status: Ordered Quantity: 180.0 Unit: tablet Repeat number: 1 carvedilol 12.5 mg oral tablet See Instructions, TAKE 1 TABLET BY MOUTH TWICE DAILY BEFORE BREAKFAST AND DINNER, # 180 tablet, Refills 3, Maintenance, 10/31/22 8:07:00 PM EST, Instructions Replace Required Details, Route to Pharmacy Electronically, [facility] #[id number], 172.7, cm, 08/19/22 12:59:00 EST, Height Start Date: 10/31/22 Status: Ordered Quantity: 180.0 Unit: tablet Repeat number: 1 Contour Next EZ Test Strips See Instructions, # 700 each, Refills 5, Tot. Refills 5, Maintenance, test BG 8x daily. Sx code E10.9, 3 month supply, 08/19/22 1:16:00 PM EST, Compound, 172.7, cm, 08/19/22 12:59:00 EST, Height Start Date: 08/19/22 Stop Date: 02/10/24 Status: Ordered Quantity: 700.0 Unit: each Repeat number: 6 Control Solution Control Solution, See Instructions, # 1 bottle, Refills 0, Tot. Refills 0, Maintenance, use to testmeter functionality as needed ( please dispense one high and one low solution), 07/24/14 3:24:19 PMEDT, Compound Start Date: 07/24/14 Status: Ordered Quantity: 1.0 Unit: bottle Repeat number: 1 Fish Oil = 1,000 mg, By Mouth, 0 Refills, Maintenance, 02/23/13 10:53:30 AM EDT Start Date: 02/23/13 Status: Ordered Repeat number: 1 furosemide 20 mg oral tablet 90 each, 0 Refill(s), Refills 0, 11/04/23 10:20:00 AM EST, Partial fill upon patient request if the prescription is for a schedule II opioid drug. Start Date: 11/04/23 Status: Ordered Repeat number: 1 Humalog 100 u/ml subcutaneous injection See Instructions, INJECT UP TO 50 UNITS SUBCUTANEOUSLY DAILY FOR INSULIN PUMP, # 50 mL, 3 Refills, Maintenance, 02/18/24 8:57:00 PM EDT, [facility], 90 day supply, 172.7, cm, 02/09/24 11:15:00 EDT, Height Start Date: 02/18/24 Status: Ordered Quantity: 50.0 Unit: mL Repeat number: 4 Humalog Kwik Pen 100 units/mL subcutaneous injection See Instructions, Take up to 25 units of humalog a day for meals per ICR and ISF. e 10.9. 90 day EMERGENCY SUPPLY, # 45 mL, 0 Refills, Maintenance, 11/20/19 12:32:00 PM EST, [facility] #[id number], 172.7, cm, 05/16/19 9:40:00 EDT, Height Start Date: 11/20/19 Status: Ordered Quantity: 45.0 Unit: mL Repeat number: 1 Lantus Solostar Pen 100 units/mL subcutaneous solution See Instructions, lantus 24 units daily at bedtime for pump failure. E 10.9, 90 day supply, # 30 mL, 3 Refills, Maintenance, 08/19/22 1:17:00 PM EST, [facility] #[id number], 172.7, cm, 08/19/22 12:59:00 EST, Height Start Date: 08/19/22 Status: Ordered Quantity: 30.0 Unit: mL Repeat number: 4 lisinopril 10 mg oral tablet 10 mg, 1, tablet, By Mouth, Daily, # 90 tablet, Refills 3, Tot. Refills 3, Maintenance, 04/20/24 10:05:00 AM EDT, Route to Pharmacy Electronically, [facility] #[id number], Partial fill upon patient request if the prescription is for a schedule II opioid drug., 172.7, cm, 02/09/24 11:15:00 EDT, Height Start Date: 04/20/24 Status: Ordered Quantity: 90.0 Unit: tablet Repeat number: 4 lisinopril 20 mg oral tablet 90 each, 0 Refill(s), TAKE 1 TABLET BY MOUTH DAILY, Refills 0, 08/22/24 10:02:00 AM EST, Partial fill upon patient request if the prescription is for a schedule II opioid drug. Start Date: 08/22/24 Status: Ordered Repeat number: 1 Miscellaneous Rx 0 Refills, 8 each, 0 Refill(s), TEST DIRECTED TODAY, 08/22/24 10:02:00 AM EST Start Date: 08/22/24 Status: Ordered Repeat number: 1 Multivitamin By Mouth, Daily, 0 Refills, Maintenance, 02/27/11 8:14:22 AM EDT Start Date: 02/27/11 Status: Ordered Repeat number: 1 Pen [facility], 31 G x 5 mm BD Ultra Fine III See Instructions, # 150 each, Refills 11, Tot. Refills 11, Maintenance, to take insulin 4x a day. E10.9, 09/07/19 4:25:47 PM EST, Compound, 172.7, cm, 05/16/19 9:40:30 EDT, Height Start Date: 09/07/19 Status: Ordered Quantity: 150.0 Unit: each Repeat number: 12 rosuvastatin 40 mg oral tablet 90 each, 0 Refill(s), TAKE 1 TABLET BY MOUTH DAILY, 0 Refills, 08/22/24 10:02:00 AM EST, Partial fill upon patient request if the prescription is for a schedule II opioid drug. Start Date: 08/22/24 Status: Ordered Repeat number: 1 Vitamin D3 By Mouth, Daily, 0 Refills, Maintenance, 02/27/11 8:15:33 AM EDT Start Date: 02/27/11 Status: Ordered Repeat number: 1 Vitamin E By Mouth, Daily, 0 Refills, Maintenance, 02/27/11 8:15:15 AM EDT Start Date: 02/27/11 Status: Ordered Repeat number: 1 Problem List Condition Confirmation Course Effective Dates Status H ealth Status Informant Coronary artery disease Confirmed Active Diabetes mellitus type 1 Confirmed 1961 Active Hyperlipidemia Confirmed 1999 Active Hypertension Confirmed Active Insulin pump in place Confirmed Active Obese class I Confirmed Active Peripheral neuropathy Confirmed Active Retinopathy Confirmed Active Type I diabetes with complications Confirmed Active Social History Social History Type Response Smoking Status Former smoker; Tobac co user in household: No; Other: quit smoking 1994; entered on: 03/12/16 Sex Sex Representation Male (finding) Patient Care team information Care Team Personnel Name: Louise Sheriff RN Position: S RN Member Role: Primary Care Nurse Name: Roxann Carrillo MD Position: [facility] Cardiology MD Member Role: Lifetime Consulting Physician Address: [address] [place] [address]- Telecom: Name: Maritza Hoffman MD Position: Reference Physician Member Role: PCP Address: [address] [place] [address]- Telecom: Care Team Related Persons Name: LUCERO DOW Insurance Providers Guarantor name: JASON ANJALI [employer] Plan Information #: 1 Payer: MEDICARE PART B OUTPT Member Number: NA Policy Number: NA Group Number: NA Health Plan Information #: 2 Payer: BLUE MEDICARE SUPPL Member Number: NA Policy Number: NA Group Number: NA
[2024-09-29 13:06] LABS: MANUAL DIFF FLAG NO
[2024-09-29 13:11] LABS: Basophils Absolute Auto 0.1 X10*3/uL (0.0-0.2); Basophils Percent Auto 1.3 % (0-2); Eosinophils Absolute Auto 0.2 X10*3/uL (0.0-0.4); Eosinophils Percent Auto 2.8 % (0-4); Hematocrit 37.6 % (42.0-52.0); Hemoglobin 12.7 g/dl (14.0-18.0); Imm Gran Abs Auto 0.02 X10*3/uL (0.00-0.03); Imm Gran Pct Auto 0.3 % (0.0-0.4); Lymphocytes Absolute Auto 1.7 X10*3/uL (1.2-4.9); Lymphocytes Percent Auto 24.3 % (20-40); Mean Corpuscular HGB Conc 33.8 g/dl (31.0-36.0); Mean Corpuscular Hemoglobin 31.8 pg (27.0-33.0); Monocytes Absolute Auto 0.5 X10*3/uL (0.1-1.2); Monocytes Percent Auto 6.5 % (2-11); Neutrophils Absolute Auto 4.6 x10*3/uL (2.0-8.3); Neutrophils Percent Auto 64.8 % (45-73); Platelet Count 264 X10*3/uL (160-400); Red Cell Distribution Width 12.6 % (11.0-16.0); White Blood Count 7.1 X10*3/uL (4.8-10.8)
[2024-09-29 13:15] LABS: Estimated Average Glucose 166 mg/dL; Hemoglobin A1C 194.2046 umol/L; Hemoglobin A1c % 7.4 % (<6.0); Total Hemoglobin (HGBA1C) 3400.3869 umol/L
[2024-09-29 13:58] LABS: Alanine Aminotransferase 26 U/L (0-40); Albumin Level 3.9 g/dL (3.5-5.0); Alkaline Phosphatase 82 U/L (39-117); Anion Gap 9 (12-20); Aspartate Amino Transferase 30 U/L (5-37); Bilirubin Total 0.4 mg/dL (0.0-1.0); Blood Urea Nitrogen 16 mg/dL (9-16); Carbon Dioxide 28 mmol/L (22-29); Chloride 106 mmol/L (96-108); Cholesterol 155 mg/dL (<200); Estimated Glomerular Filt Rate > 60; Glucose Random 152 mg/dL (60-115); HDL Cholesterol 51 mg/dL (>40); LDL Cholesterol Calculated 89 mg/dL (<100); Potassium 4.8 mmol/L (3.3-5.1); Sodium 138 mmol/L (135-145); Total Protein 6.8 g/dL (6.5-8.0); Triglycerides 76 mg/dL (<150)
== END 2024-09-29 09:19 | disposition home or self-care (01) ==
LOC: HO.HMGCLDS 09:18
PROVIDERS: PCP Internal Medicine; Visit Provider Internal Medicine
DX: E78.00 Pure hypercholesterolemia, unspecified (principal); Z13.1 Encounter for screening for diabetes mellitus
CPT/HCPCS: 36415; 80053; 80061; 83036; 84439; 85025

== ENCOUNTER 2024-10-02 16:41 | Outpatient (AMB) | payer MEDICARE, BC, SELFPAY ==
--- OUTSIDE RECORDS SUMMARY | 2024-10-02 16:42 | XMS_ITS | Patient Health Record ---
Author Organization [facility] Address [address] [place] [address] Care Team Providers Care Cutter Grinder Operator Name Role Phone Sara Zamarripa MD Primary Care Provider Milton Blanca Unavailable [phone] ALLERGIES No Known Allergies REASON FOR REFERRAL [...] confirmed Screening for malignant neoplasm of colon (568497159) Problem Personal history of colonic polyps (Z86.010) Active confirmed History of poly p of colon (091503956) Problem Encounter for other preprocedural examination (Z01.818) Active confirmed Pre-procedure evaluation check (566225029) Problem alf (current) use of aspirin (Z79.82) Active confirmed Long-term c urrent use of antiplatelet drug (328667711767957) Problem Diverticulosis of colon (K57.30) Active confirmed Diverticulosi s of colon (973330544) PLAN OF TREATMENT Pending Test Test Name Order Date Pathology 03/18/2022 Future Test Test Name Order Date COLONOSCOPY 03/09/2013 COLONOSCOPY 02/13/2022 Insurance Providers Payer Name Payer Address Payer Phone Subscriber Number Group Number Insured Name Patient Relationship to Insured Coverage Start Date Coverage End Date MEDICARE OF [place] [address] [place] [address] [id number] ANJALILILLY WARRENARD Self - patient is the insured [facility] [address] [place], [place] [id number] [phone] [id number] LILLY ALBAARD Self - patient is the insured MEDICAL (GENERAL) HISTORY Medical History History ICD Code Colonoscopy 02/07/2007-1 sma ll tubular adenoma removed-sigmoid diverticuloosis and internal hemorrhoids noted as well IDDM--has an Insulin pump Hyperlipidemia NV 09/2007--has 1 stent--no problems sin ce Denies CVA,Lung disease,renal disease Negative colonoscopy in 05/2013 Surgical History Surgery Date(Month/Year)
[2024-10-02 16:58] VITALS: BP 152/66; PULSE 76; O2SAT 96; BMI 30.6
--- NOTE | 2024-10-02 16:58 | MHC.PC.OV ---
Vital Signs 10/02/24 16:58 Height 5 ft 8 in Weight 201 lb 6 oz BMI 30.6 BP 152/66 H Blood Pressure Location Lt brachial Position Sitting Pulse 76 Pulse Source Pulse Oximeter Pulse Oximetry (%) 96 Oxygen Delivery Method Room Air Intake Visit Reasons: DM Topstitcher Zigzag Required: No Accompanied by: Self / Same As Patient Allergies No Known Allergies Allergy (Verified 10/02/24 17:03) Medication List - Last Reconciled 10/02/24 by Maritza Hoffman MD aspirin 81 mg PO DAILY blood sugar diagnostic (Contour Next Test Strips) As directed carvedilol 12.5 mg PO BID cholecalciferol (vitamin D3) 25 mcg PO DAILY cyanocobalamin (vitamin B-12) 1,000 mcg PO DAILY furosemide (Lasix) 20 mg PO DAILY insulin lispro units subcut lisinopril 20 mg PO DAILY rosuvastatin 40 mg PO DAILY Tobacco use date assessed: 10/02/24 Fall risk assessment: No Falls in past year Last assessed Fall Risk: 10/02/24 Dental Screening Dental Screen Date: 02/08/24 HPI DM HPI Details The patient is a 68-year-old male presenting with chronic conditions management, including hypertension, diabetes mellitus, hyperlipidemia, anemia, and chronic kidney disease. The patient has been anemic for an estimated duration of three to six years, with stable hemoglobin levels at 12.7, consistent with previous readings. Type 2 Diabetes Mellitus is complicated by neuropathy, presenting as a burning sensation in the heels, occurring variably between the left and right sides, and alleviated by elevating the legs. The neuropathy has been present and notable for two years. HbA1c remains elevated at 7.4, with an machine stripper's acknowledgment of control but caution advised against further elevation. Hyperlipidemia management is challenged by persistent LDL levels above target, with a reduction from 95 to 89, but still not below the advised threshold of 70. This condition is exacerbated by historical cardiac concerns. Kidney function indicates stage 1 chronic kidney disease, with creatinine levels at 0.99, and urinary protein spillage observed. Current medication includes aspirin, carvedilol, furosemide, lispro insulin, rosuvastatin, vitamin D, and B12 supplementation. [facility] Medical History (Updated 02/08/24 @ 15:40 by Maritza Hoffman MD) Diabetes COVID-19 virus infection Annual physical exam Retinopathy History of placement of stent in LAD coronary artery Myocardial infarct Hypercholesteremia HTN (hypertension) Mild anemia Surgical History History of colonoscopy S/P drug eluting coronary stent placement Family History Father No problems noted. Mother Heart disease Maternal Grandfather No problems noted. Maternal Grandmother No problems noted. Maternal Aunt No problems noted. Maternal Uncle No problems noted. Paternal Aunt No problems noted. Paternal Grandfather No problems noted. Paternal Grandmother No problems noted. Paternal Uncle No problems noted. Brother No problems noted. Brother No problems noted. Brother No problems noted. Brother No problems noted. Brother No problems noted. Sister No problems noted. Sister No problems noted. Son No problems noted. Son No problems noted. Son No problems noted. Son No problems noted. Social History Housing: House Alcohol intake: never Patient Tobacco Use Status: Former Tobacco user Tobacco use type: Cigarette Years Smoked: 1989 e-Cigarette/Vaping Use: Never Used Second Hand Smoke Exposure: No service: No Current occupational status: retired Cognitive needs: No Hearing needs: Yes Vision needs: Yes Questionnaire Thrive Questionnaire Date Thrive assessed: 02/08/24 Are you currently unemployed and looking for a job?: No DION-7 AMB Questionnaire DION-7 Date DION - 7 assessed: 02/08/24 Source: Developed by Drs. Milton Jackson, Keesha Torres, Shawn Maguire and colleagues, with an educational bernard from [employer]. Physical exam (Primary Care) Vital Signs: Last Vital Signs Pulse 76 10/02/24 16:58 BP 152/66 H 10/02/24 16:58 Pulse Ox 96 10/02/24 16:58 Oxygen Delivery Method Room Air 10/02/24 16:58 BMI result Body Mass Index 30.6 Tobacco/Smoking Status: Tobacco use Status Tobacco use date assessed 10/02/24 10/02/24 17:03 Patient Tobacco Use Status Former Tobacco user 10/02/24 17:03 Tobacco use type Cigarette 10/02/24 17:03 e-Cigarette/Vaping Use Never Used 10/02/24 17:03 Thrive Assessment: Date of Thrive Assessment Date Thrive assessed 02/08/24 10/02/24 17:03 Const General: alert; No acute distress Eyes Conjunctivae: conjunctivae normal Resp Auscultation: clear to auscultation bilaterally Cardio Rate: regular rate Rhythm: regular rhythm GI Inspection: Yes normal to inspection Extrem General: Yes normal to inspection and No edema Immunizations tetanus-diphtheria toxoids-Td 2 Lf unit-2 Lf unit/0.5 mL IM suspension Performing Provider: Maritza Hoffman MD Performing Location: [facility] Administered by: HAILE Delaney on 10/02/24 17:37 Dose Route Admin Location Dispensed Lot Number Expiration Date [place] [employer] Artillery Operations Specialist 0.5 mL IM Left Deltoid 0.5 mL [id number] 11/13/24 [address]-4 [employer] VIS Given Date VIS Provided VIS Publication Date 10/02/24 Single Vaccine 21 Eligibility Eligibility Date Funding Source Not [facility] Eligible 10/02/24 [facility] funds Coding Level of Care Code Est Pt Level 4 (88949) Complex EM visit Add On G2211 Diagnoses Type 1 diabetes mellitus with hyperglycemia E10.65 Diabetes mellitus complication status: with hyperglycemia Hypercholesteremia E78.00 Primary hypertension I10 Hypertension type: primary hypertension Coronary artery disease involving [place] coronary artery of [place] heart without angina pectoris I25.10 Associated angina: without angina Coronary Disease-Associated Artery/Lesion type: [place] artery [place] vs. transplanted heart: [place] heart Assessment & Plan Assessment & Plan (1) Diabetes mellitus type 1: Comment: Dr. Nagel Code(s): E10.9 - Type 1 diabetes mellitus without complications Category: Medical Qualifiers: Diabetes mellitus complication status: with hyperglycemia Qualified Code(s): E10.65 - Type 1 diabetes mellitus with hyperglycemia (2) Hypercholesteremia: Code(s): E78.00 - Pure hypercholesterolemia, unspecified Category: Medical (3) HTN (hypertension): Comment: BP< 130/80 Code(s): I10 - Essential (primary) hypertension Category: Medical Qualifiers: Hypertension type: primary hypertension Qualified Code(s): I10 - Essential (primary) hypertension (4) Coronary artery disease: Comment: Dr. Patel Code(s): I25.10 - Atherosclerotic heart disease of [place] coronary artery without angina pectoris Category: Medical Qualifiers: Associated angina: without angina Coronary Disease-Associated Artery/Lesion type: [place] artery [place] vs. transplanted heart: [place] heart Qualified Code(s): I25.10 - Atherosclerotic heart disease of [place] coronary artery without angina pectoris Plan 1. 75 mg twice daily. Continue to monitor blood pressure at home and target at or below 130/80 mmHg: - Manage Type 2 Diabetes Mellitus by maintaining blood sugars to prevent further neuropathy progression. Discuss use of aspercreme for symptomatic relief of neuropathic pain. Continue prescribed insulin regimen. - Evaluate hyperlipidemia by considering the addition of another lipid-lowering agent alongside rosuvastatin to achieve target LDL levels, aiming below 70 mg/dL. - Monitor and maintain kidney health by ensuring controlled blood sugar and blood pressure levels. - Monitor chronic anemia with regular complete blood counts to watch stability. - Health maintenance: Administer tetanus booster, given the last recorded vaccination was in 2013. Advise caution despite recent vaccinations and encourage lifestyle changes to support overall health. - Encourage adherence to dietary modifications, focusing on reducing cholesterol intake, particularly decreasing saturated fat consumption from sources like fried foods and pastries. Orders: Orders Lipid Panel 3 Months E78.00 - Pure hypercholesterolemia, unspecified Comprehensive Met. Panel 3 Months E78.00 - Pure hypercholesterolemia, unspecified Td State Immunization Today Z23 - Encounter for immunization Hemoglobin A1c 3 Months E78.00 - Pure hypercholesterolemia, unspecified Medications: New ezetimibe (Zetia) 10 mg PO DAILY 90 tabs 1RF E78.00 - Pure hypercholesterolemia, unspecified ezetimibe (Zetia) 10 mg PO DAILY 30 tabs 4RF E78.00 - Pure hypercholesterolemia, unspecified Changed From carvedilol 18.75 mg PO BID E78.00 - Pure hypercholesterolemia, unspecified To carvedilol 18.75 mg (1.5 x 12.5 mg) PO BID 270 tabs 1RF 90 days E78.00 - Pure hypercholesterolemia, unspecified
== END 2024-10-02 17:39 | disposition home or self-care (01) ==
PROVIDERS: PCP Internal Medicine; Visit Provider Internal Medicine
DX: E10.65 Type 1 diabetes mellitus with hyperglycemia (principal); E78.00 Pure hypercholesterolemia, unspecified; I10 Essential (primary) hypertension; I25.10 Atherosclerotic heart disease of native coronary artery without angina pectoris; Z23 Encounter for immunization

== ENCOUNTER → 2024-10-02 16:41 | Outpatient (BNVA) | payer MEDICARE, BC, SELFPAY | PROVIDERS: PCP Internal Medicine; Visit Provider Internal Medicine | DX: Z23 Encounter for immunization (principal); E10.65 Type 1 diabetes mellitus with hyperglycemia; E78.00 Pure hypercholesterolemia, unspecified; I10 Essential (primary) hypertension; I25.10 Atherosclerotic heart disease of native coronary artery without angina pectoris | CPT/HCPCS: 90471; 90714; 99212 ==

== ENCOUNTER 2025-01-30 09:18 | Outpatient (REF) | payer MEDICARE, BC, SELFPAY ==
--- OUTSIDE RECORDS SUMMARY | 2025-01-30 10:08 | XMS_ITS | Clinical Summary ---
Author Organization [facility] Address [address] [facility] [address] [place] [address] Phone Care Team Providers Care Facilities Specialist Name Role Phone Maritza Hoffman MD Primary Care Provider [phone] Allergies No known active allergies Medications aspirin (ST JUDI) 81 MG EC tablet Take 81 mg by mouth 1 (one) time each day Active atorvastatin (LIPITOR) 80 MG tablet Take 80 mg by mouth 1 (one) time each day Active carvedilol (COREG) 12.5 MG tablet Take 12.5 mg by mouth in the morning and 12.5 mg in the evening. Take with meals. 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, not otherwise specified 08/22/2023 Proliferative retinopathy due to diabetes mellit 11/10/2005 Resolved Problems Problem Noted Date Diagnosed Date Resolved Date Retinal disorder 08/22/2023 08/22/2023 08/22/2023 Family History Medical History Relation Comments Kidney disease Mother Relation Status Comments Mother Social History Tobacco Use Types Packs/Day Years Used Date Smoking Tobacco: Former Cigarettes Q uit: 2002 Smokeless Tobacco: Never Alcohol Use Standard Drinks/Week Comments Never 0 (1 standard drink = 0.6 oz pur e alcohol) Sex and Gender Information Value Date Recorded Sex Assigned at Not on file Legal Sex Male 10:45 AM EDT Gender Identity Not on file Sexual Orientation Not on file Last Filed Vital Signs Vital Sign Reading Time Taken Comments Blood Pressure 126/76 08/24/2023 10:38 AM EST Pulse 64 08/24/2023 10:38 AM EST Temperature - - Respiratory Rate - - Oxygen Saturation 99% 08/24/2023 10:38 AM EST Inhaled Oxygen Concentration - - Weight 89.2 kg (196 lb 9.6 oz) 08/24/2023 10:38 AM EST Height 172.7 cm (5' 8 ) 08/24/2023 10:38 AM EST Body Mass Index 29.89 08/24/2023 10:38 AM EST Plan of Treatment Health Maintenance Due Date Last Done Comments Pneumococcal Vaccine: 50+ Ye ars (1 of 2 - PCV) 1972 Colorectal Cancer Screening: Annual FOBT 2002 Colorectal Cancer Screening: Colonoscopy 2002 Colorectal Cancer Screening: Sigmoidoscopy 2002 Diabetes: Hemoglobin A1C 04/14/2023 Diabetes: Ophthalmology Exam 04/14/2023 Diabetes: Pedal Pulse Checked 04/14/2023 Diabetes: Sensory Foot Exam 04/14/2023 Diabetes: Visual Foot Exam 04/14/2023 Influenza Vaccine (Season Ended) 2025 Hepatitis B Vaccine Aged Out No longe r eligible based on patient's age to complete this topic Insurance Medicare [facility] Medicare [facility] Care Teams Facilities Specialist Relationship Specialty Start Date End Date Maritza Hoffman MD [facility] [place] [address] [facility] [place] PCP - General Internal Medicine 08/24/23
--- OUTSIDE RECORDS SUMMARY | 2025-01-30 10:08 | XMS_ITS | Encounter Summary ---
Author Organization [facility] Address [address] [facility] [address] [place] [address] Phone Care Team Providers Care Industrial Engineering Technician Name Role Phone Maritza Hoffman MD Primary Care Provider [phone] Reason for Visit * Reason Comments Med Refill Encounter Details Date Type Department Care Team (Late st Contact Info) Description 07/31/2024 Refill [facility] [address] [facility] [address] [place] [phone] Marin Deal MD [address] [place] [phone] Social History Tobacco Use Types Packs/Day Years [...] on file Sexual Orientation Not on file documented as of this encounter Plan of Treatment Not on file documented as of this encounter Visit Diagnoses Not on filedocumented in this encounter Care Teams Industrial Engineering Technician Relationship Specialty Start Date End Date Maritza Hoffman MD [facility] [address] [place] PCP - General Internal Medicine 08/24/23 documented as of this encounter
--- OUTSIDE RECORDS SUMMARY | 2025-01-30 10:08 | XMS_ITS | Continuity of Care Document ---
Author Organization [facility] Address [address] [place] [address]- Care Team Providers Care Process Safety Engineer Name Role Phone Po Maritza SANCHEZ Primary Care Physician [phone] [place] [facility] [place]): [place] 01/27/25 [facility] [address] [place] [id number] Encounter Type: Triage Allergies, Adverse Reactions, Alerts [...] Refills, Soft Stop, 05/18/24 5:39:00 PM EDT, [facility] #[id number], Partial fill upon patient request if the prescription is for a schedule II opioid drug., 172.7, cm, 05/18/24 10:10:00 EDT, Height Start Date: 05/18/24 Status: Ordered Quantity: 1.0 Unit: each Repeat number: 3 carvedilol 12.5 mg oral tablet See Instructions, TAKE 1 TABLET BY MOUTH TWICE DAILY BEFORE BREAKFAST AND DINNER, # 180 tablet, Refills 0, Maintenance, 11/27/24 7:28:00 AM EST, Instructions Replace Required Details, Route to Pharmacy Electronically, [id number], 172.7, cm, 11/22/24 15:28:00 EST, Height Start Date: 11/27/24 Status: Ordered Quantity: 180.0 Unit: tablet Repeat number: 1 Contour Next EZ Test Strips See Instructions, # 700 each, Refills 5, Tot. Refills 5, Maintenance, test BG 8x daily. Sx code E10.9, 3 month supply, 10/02/24 12:35:00 PM EST, Compound, 172.7, cm, 08/22/24 9:58:00 EST, Height Start Date: 10/02/24 Stop Date: 03/26/26 Status: Ordered Quantity: 700.0 Unit: each Repeat [...] PUMP, # 50 mL, 3 Refills, Maintenance, 01/23/25 6:56:00 AM EDT, [facility], 172.7, cm, 11/22/24 15:28:00 EST, Height Start Date: 01/23/25 Status: Ordered Quantity: 50.0 Unit: mL Repeat number: 1 Lantus Solostar Pen 100 units/mL subcutaneous solution See Instructions, lantus 24 units daily at bedtime for pump failure. E 10.9, 90 day supply, # 30 mL, 3 Refills, Maintenance, 08/19/22 1:17:00 PM EST, [facility] #[id number], 172.7, cm, 08/19/22 12:59:00 EST, Height Start Date: 08/19/22 Status: Ordered Quantity: 30.0 Unit: mL Repeat number: 4 lisinopril 10 mg oral tablet 10 mg, 1, tablet, By Mouth, Daily, # 90 tablet, Refills 3, Tot. Refills 3, Maintenance, 04/20/24 10:05:00 AM EDT, Route to Pharmacy Electronically, [facility][id number], Partial fill upon patient request if the [...] 02/27/11 Status: Ordered Repeat number: 1 Pen [place], 31 G x 5 mm BD Ultra [...] Team Personnel Name: Louise Sheriff RN Position: [facility] RN Member Role: Primary Care Nurse Name: Roxann Carrillo MD Position: [facility] Cardiology MD Member Role: Lifetime Consulting Physician Address: [address] [place] [id number] Telecom: Name: Maritza Hoffman MD Position: Reference Physician Member Role: PCP Address: [address] [place] [id number] Telecom: Care Team Related Persons Name: LUCERO DOW Insurance Providers Guarantor name: JASON ALBA [employer] Plan Information #: 1 Payer: MEDICARE PART B OUTPT Member Number: NA Policy Number: NA Group Number: NA Health Plan Information #: 2 Payer: BLUE MEDICARE SUPPL Member Number: NA Policy Number: NA Group Number: NA
[2025-01-30 10:35] LABS: Estimated Average Glucose 189 mg/dL; Hemoglobin A1c % 8.2 % (<6.0); Total Hemoglobin (HGBA1C) 3186.8301 umol/L
[2025-01-30 11:42] LABS: Albumin Level 3.8 g/dL (3.5-5.0); Alkaline Phosphatase 72 U/L (39-117); Anion Gap 11 (12-20); Aspartate Amino Transferase 34 U/L (5-37); Bilirubin Total 0.5 mg/dL (0.0-1.0); Blood Urea Nitrogen 26 mg/dL (9-16); Calcium 8.8 mg/dL (8.4-10.2); Carbon Dioxide 27 mmol/L (22-29); Chloride 107 mmol/L (96-108); Cholesterol 105 mg/dL (<200); Estimated Glomerular Filt Rate > 60; Glucose Random 210 mg/dL (60-115); HDL Cholesterol 38 mg/dL (>40); LDL Cholesterol Calculated 48 mg/dL (<100); Potassium 4.6 mmol/L (3.3-5.1); Sodium 140 mmol/L (135-145); Total Protein 6.5 g/dL (6.5-8.0); Triglycerides 97 mg/dL (<150)
[2025-01-30 12:45] LABS: Alanine Aminotransferase 28 U/L (0-40)
== END 2025-01-30 09:19 | disposition home or self-care (01) ==
LOC: HO.HMGCLDS 09:18
PROVIDERS: PCP Internal Medicine; Visit Provider Internal Medicine
DX: E78.00 Pure hypercholesterolemia, unspecified (principal); Z13.1 Encounter for screening for diabetes mellitus
CPT/HCPCS: 36415; 80053; 80061; 83036

== ENCOUNTER 2025-01-31 12:54 | Outpatient (AMB) | payer MEDICARE, BC, SELFPAY ==
--- NOTE | 2025-01-31 12:58 | A.OFFPC_ITS ---
Vital Signs 01/31/25 13:03 Height 5 ft 8 in Weight 196 lb BMI 29.8 BP 126/58 L Blood Pressure Location Lt brachial Position Sitting Pulse 78 Pulse Source Pulse Oximeter Temp 97.1 F Temp Source Temporal Artery Scan Pulse Oximetry (%) 97 Oxygen Delivery Method Room Air Intake Visit Reasons: DM It Support Manager Required: No Accompanied by: Self / Same As Patient Allergies No Known Allergies Allergy (Verified 01/31/25 13:09) Tobacco use date assessed: 01/31/25 Fall risk assessment: No Falls in past year Last assessed Fall Risk: 01/31/25 Dental Screening Dental Screen Date: 01/31/25 Did you have a dental visit in the last 12 months?: Yes Did you have a dental problem in the last 6 months where you did not have access to dental care?: No Was dental information given to patient?: Patient has dentist [facility] Medical History (Updated 02/08/24 @ 15:40 by Maritza Hoffman MD) Diabetes COVID-19 virus infection Annual physical exam Retinopathy History of placement of stent in LAD coronary artery Myocardial infarct Hypercholesteremia HTN (hypertension) Mild anemia Surgical History History of colonoscopy S/P drug eluting coronary stent placement Family History Father No problems noted. Mother Heart disease Maternal Grandfather No problems noted. Maternal Grandmother No problems noted. Maternal Aunt No problems noted. Maternal Uncle No problems noted. Paternal Aunt No problems noted. Paternal Grandfather No problems noted. Paternal Grandmother No problems noted. Paternal Uncle No problems noted. Brother No problems noted. Brother No problems noted. Brother No problems noted. Brother No problems noted. Brother No problems noted. Sister No problems noted. Sister No problems noted. Son No problems noted. Son No problems noted. Son No problems noted. Son No problems noted. Social History Housing: House Alcohol intake: never Patient Tobacco Use Status: Former Tobacco user Tobacco use type: Cigarette Years Smoked: stopped 1989 e-Cigarette/Vaping Use: Never Used Second Hand Smoke Exposure: No service: No Current occupational status: retired Cognitive needs: No Hearing needs: Yes Vision needs: Yes Questionnaire PHQ-9 Over the last 2 weeks, how often have you been bothered by any of the following problems? 1. Little interest or pleasure in doing things: not at all 2. Feeling down, depressed, or hopeless: not at all 3. Trouble falling or staying asleep, or sleeping too much: not at all 4. Feeling tired or having little energy: not at all 5. Poor appetite or overeating: not at all 6. Feeling bad about yourself - or that you are a failure or have let yourself or your family down: not at all 7. Trouble concentrating on things, such as reading the newspaper or watching television: not at all 8. Moving or speaking so slowly that other people could have noticed. Or the opposite - being so fidgety or restless that you have been moving around a lot more than usual: not at all 9. Thoughts that you would be better off or of hurting yourself in some way: not at all Total score: 0 Depression Screening Interpretation: Negative Depression Screening Done: Yes 69720 - PHQ-9 Billing: Yes Source: Developed by Drs. Milton Jackson, Keesha Torres, Shawn Maguire and colleagues, with an educational bernard from [employer]. Thrive Questionnaire Date Thrive assessed: 01/31/25 I am a: Patient What is your living situation today?: I choose not to answer this question Within the past 12 months, did the food you bought not last and you didn't have the money to get more?: I choose not to answer this question Within the past 12 months, did you worry whether your food would run out before you got money to buy more?: I choose not to answer this question Do you have trouble paying for medicines?: No Do you have trouble getting transportation to medical appointments?: No Do you have trouble paying your heating and electricity bill?: No Do you have trouble taking care of your child, family member or friend?: No Do you have trouble with day-to-day activities such as bathing, preparing meals, shopping, managing finances, etc.?: No Are you currently unemployed and looking for a job?: No Are you interested in more education?: No Please select the resources that you would like help with: None Currently or been in a relationship where the following occur: I choose not to answer THRIVE Score: 0 AUDIT C Alcohol Use Questionnaire (AUDIT-C) 1. How often do you have a drink containing alcohol?: Never 3. How often do you have six or more drinks on one occasion?: Never Total Score: 0 DION-7 AMB Questionnaire DION-7 Date DION - 7 assessed: 01/31/25 Feeling nervous, anxious, or on edge: 0 = Not at all Not being able to stop or control worryin = Not at all Worrying too much about different things: 0 = Not at all Trouble relaxin = Not at all Being so restless that it is hard to sit still: 0 = Not at all Becoming easily annoyed or irritable: 0 = Not at all Feeling afraid as if something awful might happen: 0 = Not at all Total DION-7 score (0-4 normal; 5-9 mild; 10-14 moderate; 15-21 severe): 0 Source: Developed by Drs. Milton Jackson, Keesha Torres, Shawn Maguire and colleagues, with an educational bernard from [employer]. DION-7 Assessment Billing DION-7 Assessment Tool: DION-7 Assessment 02553 Physical exam (Primary Care) Vital Signs: Last Vital Signs Temp 97.1 F 01/31/25 13:03 Pulse 78 01/31/25 13:03 BP 126/58 L 01/31/25 13:03 Pulse Ox 97 01/31/25 13:03 Oxygen Delivery Method Room Air 01/31/25 13:03 BMI result Body Mass Index 29.8 Tobacco/Smoking Status: Tobacco use Status Tobacco use date assessed 01/31/25 01/31/25 13:10 Patient Tobacco Use Status Former Tobacco user 01/31/25 12:58 Tobacco use type Cigarette 01/31/25 12:58 e-Cigarette/Vaping Use Never Used 01/31/25 12:58 PHQ-9: PHQ-9 Score PHQ-9: Total score 0 01/31/25 13:29 Depression Screening Interpretation: Negative Thrive Assessment: Date of Thrive Assessment Date Thrive assessed 01/31/25 01/31/25 13:03 Currently or been in a relationship where the following occur: I choose not to answer Const General: alert; No acute distress Eyes Conjunctivae: conjunctivae normal Resp Auscultation: clear to auscultation bilaterally Cardio Rate: regular rate Rhythm: regular rhythm GI Inspection: Yes normal to inspection Extrem General: Yes normal to inspection and No edema Coding Level of Care Code Est Pt Level 4 (20031) Complex EM visit Add On G2211 Diagnoses Type 1 diabetes mellitus with hyperglycemia E10.65 Diabetes mellitus complication status: with hyperglycemia Coronary artery disease involving [place] coronary artery of [place] heart without angina pectoris I25.10 Associated angina: without angina Coronary Disease-Associated Artery/Lesion type: [place] artery [place] vs. transplanted heart: [place] heart Primary hypertension I10 Hypertension type: primary hypertension Hypercholesteremia E78.00 Additional Codes DION-7 Assessment Billing - DION-7 Assessment Tool: DION-7 Assessment 93661 ([id number]) PHQ-9 - 52085 - PHQ-9 Billing: Yes ([id number]) Assessment & Plan Assessment & Plan (1) Diabetes mellitus type 1: Comment: Dr. Nagel Code(s): E10.9 - Type 1 diabetes mellitus without complications Category: Medical Qualifiers: Diabetes mellitus complication status: with hyperglycemia Qualified Code(s): E10.65 - Type 1 diabetes mellitus with hyperglycemia Plan: Decrease the amount of carbohydrate intake, pasta, bread, rice and potatoes are all sugar and that is aside from all the sweet stuff, remember that fruits are good but they are Sweet also. Patient follows up with endocrinology with insulin pump and using the continuous glucose monitor to monitor blood sugar and adjust insulin. (2) Coronary artery disease: Comment: Dr. Patel Code(s): I25.10 - Atherosclerotic heart disease of [place] coronary artery without angina pectoris Category: Medical Qualifiers: Associated angina: without angina Coronary Disease-Associated Artery/Lesion type: [place] artery [place] vs. transplanted heart: [place] heart Qualified Code(s): I25.10 - Atherosclerotic heart disease of [place] coronary artery without angina pectoris Plan: Control the cholesterol, weight, blood pressure, diabetes on aspirin and on carvedilol blood pressure is very much under control (3) HTN (hypertension): Comment: BP< 130/80 Code(s): I10 - Essential (primary) hypertension Category: Medical Qualifiers: Hypertension type: primary hypertension Qualified Code(s): I10 - Essential (primary) hypertension Plan: Continue with carvedilol. And lisinopril Continue with blood pressure medication. Decrease salt intake and exercise (4) Hypercholesteremia: Code(s): E78.00 - Pure hypercholesterolemia, unspecified Category: Medical Plan: Avoid fried foods, chicken skin, eggs, butter margarine, pastries and meat. Be it pork or beef they have a lot of cholesterol LDL goal of less than 70 and triglyceride of less than 150. January 2025 48 Plan History of Present Illness The patient is a 69-year-old male presenting for a follow-up of chronic conditions including hypertension, hypercholesterolemia, coronary artery disease, and diabetes mellitus type 1. He has experienced a recent weight loss of 5 pounds, with blood pressure well-controlled at 126/38 mmHg under carvedilol and lisinopril therapy. He uses a CGM and insulin pump for managing diabetes with an A1c goal of 7.0- 7.5%, but faced pump issues during a vacation leading to elevated glucose readings. The current A1c is 8.2%. His LDL is 48 mg/dL, although his HDL has decreased. Anemia is stable. Medication concerns with Ezetimibe were mentioned, and skin changes on the back were noted without alarming features. Vaccines are current except for the pneumococcal vaccine. Health Maintenance - Routine blood work done in September 2024 showed stable anemia, good renal function with creatinine at 1.11, and a liver function within normal limits. - LDL cholesterol is well controlled at 48 mg/dL. - Pneumococcal vaccination to be administered in a few years. Social History - Reports recent vacation, indicating personal mobility and traveling capacity. - Weight loss noticed, possibly related to dietary vigilance due to high glucose levels. - Discussed minor medication supply issues with the pharmacy regarding Ezetimibe. Review of Systems - Cardiovascular: Reports stable blood pressure and no chest pain. - Endocrine: Reports an increase in A1c; denies hypoglycemia with pump malfunction. - Dermatologic: Denies concerning skin changes; minor concerns reported by spouse. - General: Reports weight loss of 5 pounds. Physical Exam Results - Labs: Anemia stable; electrolytes normal; creatinine 1.11; A1c 8.2%; LDL 48 mg/dL. - Latest colonoscopy in March 2022. - No concerning findings. Plan 1. 0-7.5%. Regularly monitor renal function and hydration status. Provide pneumococcal vaccination accordingly. Monitor skin condition and report any changes. Schedule follow-up in three months.: Patient was informed and verbally consented to the use of an ambient scribe for clinic note documentation during this visit. Discussion Notes I reviewed the management plan with the patient, including the continuation of carvedilol and lisinopril for managing hypertension. We discussed Ezetimibe for cholesterol control and targeting an LDL less than 70 mg/dL. The patient is advised to maintain adequate hydration, especially with a creatinine increase to 1.11, to prevent further renal compromise. The importance of monitoring A1c and optimizing diabetes management with the new insulin pump was emphasized. The patient was advised to keep an eye on any skin changes and report if there are concerning features. Return for a follow-up in three months to reassess and monitor these conditions. Patient Instructions - Continue medications as prescribed: carvedilol, lisinopril, and Ezetimibe. - Keep hydrated and avoid medications like ibuprofen that may affect kidney function. - Monitor your blood glucose levels as instructed. - Report any new changes in your skin to our office. - Maintain a healthy lifestyle with diet and exercise. - Follow up in three months or sooner if any concerns arise. - Use the patient portal to communicate any immediate questions or concerns. Medications: Refilled rosuvastatin 40 mg PO DAILY 90 tabs 2RF E78.00 - Pure hypercholesterolemia, unspecified
[2025-01-31 13:03] VITALS: BP 126/58; PULSE 78; TEMP 36.2; O2SAT 97; BMI 29.8
--- OUTSIDE RECORDS SUMMARY | 2025-01-31 14:09 | XMS_ITS | Clinical Summary ---
Author Organization [facility] Address [address] [facility] [address] [place] [address] Phone Care Team Providers Care Cotton Gin Yard Supervisor Name Role Phone Maritza Hoffman MD Primary Care Provider [phone] Allergies No known active allergies Medications aspirin [...] age to complete this topic Insurance Medicare [facility] Medicare [facility] Care Teams Cotton Gin Yard Supervisor Relationship Specialty Start Date End Date Maritza Hoffman MD [facility] [place] [address] [place] PCP - General Internal Medicine 08/24/23
--- OUTSIDE RECORDS SUMMARY | 2025-01-31 14:09 | XMS_ITS | Encounter Summary ---
Author Organization [facility] Address [address] [facility] [address] [place] [address] Phone Care Team Providers Care Quality Control Inspector Heading Name Role Phone Maritza Hoffman MD Primary Care Provider [phone] Reason for Visit * Reason Comments Med Refill Encounter Details Date Type Department Care Team (Late st Contact Info) Description 07/31/2024 Refill [facility] [address] [facility] [address] [place] [phone] Marin Deal MD [address] [place] [phone] Social History Tobacco Use Types Packs/Day Years [...] on filedocumented in this encounter Care Teams Quality Control Inspector Heading Relationship Specialty Start Date End Date Maritza Hoffman MD [facility] [address] [place] PCP - General Internal Medicine 08/24/23 documented as of this encounter
== END 2025-01-31 13:42 | disposition home or self-care (01) ==
LOC: HO.HMCH 12:55
PROVIDERS: PCP Internal Medicine; Visit Provider Internal Medicine
DX: E10.65 Type 1 diabetes mellitus with hyperglycemia (principal); I25.10 Atherosclerotic heart disease of native coronary artery without angina pectoris; I10 Essential (primary) hypertension; E78.00 Pure hypercholesterolemia, unspecified

== ENCOUNTER → 2025-01-31 12:54 | Outpatient (BNVA) | payer MEDICARE, BC, SELFPAY | PROVIDERS: PCP Internal Medicine; Visit Provider Internal Medicine | DX: E10.65 Type 1 diabetes mellitus with hyperglycemia (principal); I25.10 Atherosclerotic heart disease of native coronary artery without angina pectoris; I10 Essential (primary) hypertension; E78.00 Pure hypercholesterolemia, unspecified | CPT/HCPCS: 96127; 99212 ==

== ENCOUNTER 2025-05-28 12:47 | Outpatient (AMB) | payer MEDICARE, BC, SELFPAY ==
--- OUTSIDE RECORDS SUMMARY | 2025-05-26 23:59 | XMS_ITS | Continuity of Care Document ---
Author Organization [facility] Address [address] [place] [address]- Care Team Providers Care Shank Tapper Name Role Phone Po Maritza SANCHEZ Primary Care Physician [id number] Date(s): 04/26/25 - 05/26/[address] [address] Attending Physician: William Johnson Admitting Physician: AdmtrWilliam Referring Physician: Admtr Ar8 Encounter Type: Triage Allergies, Adverse Reactions, Alerts [...] Refills, Soft Stop, 05/18/24 5:39:00 PM EDT, [facility] #[id number], Partial fill upon patient request if the [...] Replace Required Details, Route to Pharmacy Electronically, [facility] #[id number], 172.7, cm, 11/22/24 15:28:00 EST, Height Start [...] 3 Refills, Maintenance, 01/23/25 6:56:00 AM EDT, [facility], 172.7, cm, 11/22/24 15:28:00 EST, Height Start Date: 01/23/25 Status: Ordered Quantity: 50.0 Unit: mL Repeat number: 1 Lantus Solostar Pen 100 units/mL subcutaneous solution See Instructions, lantus 24 units daily at bedtime as a back up in case of pump failure. E 10.9, supply, # 15 mL, 3 Refills, Maintenance, 01/30/25 9:27:00 AM EDT, [facility] #[id number], 172.7, cm, 11/22/24 15:28:00 EST, Height Start Date: 01/30/25 Status: Ordered Quantity: 15.0 Unit: mL Repeat number: 4 lisinopril 10 mg oral tablet 10 mg, 1, tablet, By Mouth, Daily, # 90 tablet, Refills 3, Tot. Refills 3, Maintenance, 04/20/24 10:05:00 AM EDT, Route to Pharmacy Electronically, [facility] #[id number], Partial fill upon patient request if the [...] 02/27/11 Status: Ordered Repeat number: 1 Pen [place], 31 G x 5 mm BD Ultra [...] Active Insulin pump in place Confirmed Active Peripheral neuropathy Confirmed Active Retinopathy Confirmed Active Type I diabetes with complications Confirmed Active Social History Social History Type Response Smoking Status Former smoker; Tobac co user in household: No; Other: quit smoking 1994; entered on: 03/12/16 Sex Sex Representation Male (finding) Patient Care team information Care Team Personnel Name: Louise Sheriff RN Position: [facility] RN Member Role: Primary Care Nurse Name: Roxann Carrillo MD Position: [facility] Cardiology MD Member Role: Lifetime Consulting Physician Address: [address] [place] [address]- Telecom: Name: Maritza Hoffman MD Position: Reference Physician Member Role: PCP Address: [address] [place] [address]- Telecom: Care Team Related Persons Name: LUCERO DOW Insurance Providers Guarantor name: JASON ALBA [facility] Information #: 1 Payer: MEDICARE B Payer Identifier: NA Member Number: [id number] Group Number: [id number] Subscriber Identifier: [id number] Relationship to Subscriber: self Coverage Type: NA Coverage Verification Date: NA Telecom: NA Address: Health Plan Information #: 2 Payer: JANUARY [place] Payer Identifier: NA Member Number: [id number] Group Number: [id number] Subscriber Identifier: [id number] Relationship to Subscriber: self Coverage Type: Medicare Other Coverage Verification Date: VJ Telecom: VJ Address:
--- NOTE | 2025-05-28 13:04 | A.OFFPC_ITS ---
Vital Signs 05/28/25 13:05 Height 5 ft 8 in Weight 195 lb 2 oz BMI 29.7 BP 132/62 Blood Pressure Location Lt brachial Position Sitting Pulse 56 Pulse Source Pulse Oximeter Temp 97.3 F Temp Source Temporal Artery Scan Pulse Oximetry (%) 96 Oxygen Delivery Method Room Air Intake Visit Reasons: DM Intake Note: Patient is here to follow up on DM. Shoe Repairman Required: No Staff Appraiser: Not Required per policy Accompanied by: Self / Same As Patient Allergies No Known Allergies Allergy (Verified 05/28/25 13:05) Tobacco use date assessed: 05/28/25 Fall risk assessment: No Falls in past year Last assessed Fall Risk: 05/28/25 Dental Screening Dental Screen Date: 01/31/25 HPI DM HPI Details History of Present Illness The patient is a 69-year-old male presenting for a follow-up visit. The patient has a history of diabetes mellitus type 1 and is currently using a continuous glucose monitor. His last hemoglobin A1c, recorded on May 18, was 7.7%. He has been followed by endocrinology, with the last visit on March 06, 2025. The patient also has a history of hypertension, for which his blood pressure medication was recently increased to 20 mg once a day. He has hypercholesterolemia, with an LDL level of 48 noted in the last blood work on January 30. The patient has coronary artery disease and is up to date with ophthalmology visits, with no active diabetic retinopathy noted during the last check-up in March 2025. He has a history of diabetic retinopathy, status post laser treatment. His last colon cancer screening was in 2021. [facility] Maintenance - Colon cancer screening last performed in 2021 - Ophthalmology follow-up up to date wit h no active diabetic retinopathy Social History Review of Systems Physical Exam Results - Labs: Hemoglobin A1c 7.7% on May 18 - Labs: LDL 48 on January 30 - Labs: Creatinine 1.11 on January 30 Plan The patient will continue to monitor his blood glucose levels using the continuous glucose monitor and follow up with endocrinology as scheduled. His blood pressure medication has been adjusted to 20 mg once daily to better manage his hypertension. The patient should maintain regular follow-ups with ophthalmology to monitor for any changes in diabetic retinopathy. He is advised to continue with his current cholesterol management plan, given the LDL level of 48. A repeat colon cancer screening should be considered as per standard guidelines, given the last screening was in 2021. Patient was informed and verbally consented to the use of an ambient scribe for clinic note documentation during this visit. Discussion Notes Patient Instructions [facility] Medical History (Updated 02/08/24 @ 15:40 by Maritza Hoffman MD) Diabetes COVID-19 virus infection Annual physical exam Retinopathy History of placement of stent in LAD coronary artery Myocardial infarct Hypercholesteremia HTN (hypertension) Mild anemia Surgical History History of colonoscopy S/P drug eluting coronary stent placement Family History Father No problems noted. Mother Heart disease Maternal Grandfather No problems noted. Maternal Grandmother No problems noted. Maternal Aunt No problems noted. Maternal Uncle No problems noted. Paternal Aunt No problems noted. Paternal Grandfather No problems noted. Paternal Grandmother No problems noted. Paternal Uncle No problems noted. Brother No problems noted. Brother No problems noted. Brother No problems noted. Brother No problems noted. Brother No problems noted. Sister No problems noted. Sister No problems noted. Son No problems noted. Son No problems noted. Son No problems noted. Son No problems noted. Social History Housing: House Alcohol intake: never Patient Tobacco Use Status: Former Tobacco user Tobacco use type: Cigarette Years Smoked: stopped 1989 e-Cigarette/Vaping Use: Never Used Second Hand Smoke Exposure: Yes service: No Current occupational status: retired Cognitive needs: No Hearing needs: Yes Vision needs: Yes Questionnaire Thrive Questionnaire Date Thrive assessed: 01/31/25 I am a: Patient What is your living situation today?: I choose not to answer this question Within the past 12 months, did the food you bought not last and you didn't have the money to get more?: I choose not to answer this question Within the past 12 months, did you worry whether your food would run out before you got money to buy more?: I choose not to answer this question Do you have trouble paying for medicines?: No Do you have trouble getting transportation to medical appointments?: No Do you have trouble paying your heating and electricity bill?: No Do you have trouble taking care of your child, family member or friend?: No Do you have trouble with day-to-day activities such as bathing, preparing meals, shopping, managing finances, etc.?: No Are you currently unemployed and looking for a job?: No Are you interested in more education?: No Please select the resources that you would like help with: None Currently or been in a relationship where the following occur: I choose not to a nswer THRIVE Score: 0 DION-7 AMB Questionnaire DION-7 Date DION - 7 assessed: 01/31/25 Source: Developed by Drs. Milton Jackson, Keesha Torres, Shawn Maguire and colleagues, with an educational bernard from [employer]. Physical exam (Primary Care) Vital Signs: Last Vital Signs Temp 97.3 F 05/28/25 13:05 Pulse 56 05/28/25 13:05 BP 132/62 05/28/25 13:05 Pulse Ox 96 05/28/25 13:05 Oxygen Delivery Method Room Air 05/28/25 13:05 BMI result Body Mass Index 29.7 Tobacco/Smoking Status: Tobacco use Status Tobacco use date assessed 05/28/25 05/28/25 13:10 Patient Tobacco Use Status Former Tobacco user 05/28/25 13:10 Tobacco use type Cigarette 05/28/25 13:10 e-Cigarette/Vaping Use Never Used 05/28/25 13:10 Thrive Assessment: Date of Thrive Assessment Date Thrive assessed 01/31/25 05/28/25 13:10 Currently or been in a relationship where the following occur: I choose not to answer Const General: alert; No acute distress Eyes Conjunctivae: conjunctivae normal Resp Auscultation: clear to auscultation bilaterally Cardio Rate: regular rate Rhythm: regular rhythm GI Inspection: Yes normal to inspection Extrem General: Yes normal to inspection and No edema Results AMB Hemoglobin A1c AMB Hemoglobin A1c 7.4 % Last Edit by JOSEE Juarez on 05/28/25 13:17 Immunizations pneumoc 20-bety conj-dip cr(PF) 0.5 mL IM syringe Performing Provider: Maritza Hoffman MD [facility] Administered by: Francine Brown LPN on 05/28/25 13:29 Dose Route Admin Location Dispensed Lot Number Expiration Date [facility] Artistic Associate 0.5 mL IM Left Deltoid 0.5 mL [id number] 05/03/26 [employer] Total Dispensed Waste 0.5 mL 0 % VIS Given Date VIS Provided VIS Publication Date 05/28/25 Single Vaccine 25 Eligibility Eligibility Date Funding Source Not [facility] Eligible 05/28/25 Private Results Reviewed Results Reviewed: Laboratory Last Values Hgb A1c (Clinic) 7.4 % (4.0-6.0) H 05/28/25 13:03 Coding Level of Care Code Est Pt Level 4 (94216) Complex EM visit Add On G2211 Diagnoses Type 1 diabetes mellitus with hyperglycemia E10.65 Diabetes mellitus complication status: with hyperglycemia Primary hypertension I10 Hypertension type: primary hypertension Hypercholesteremia E78.00 Coronary artery disease involving nikolai coronary artery of nikolai heart without angina pectoris I25.10 Associated angina: without angina Coronary Disease-Associated Artery/Lesion type: nikolai artery [place] vs. transplanted heart: nikolai heart Microalbuminuria R80.9 Assessment & Plan Assessment & Plan (1) Diabetes mellitus type 1: Comment: Dr. Nagel Code(s): E10.9 - Type 1 diabetes mellitus without complications Category: Medical Qualifiers: Diabetes mellitus complication status: with hyperglycemia Qualified Code(s): E10.65 - Type 1 diabetes mellitus with hyperglycemia Plan: Decrease the amount of carbohydrate intake, pasta, bread, rice and potatoes are all sugar and that is aside from all the sweet stuff, remember that fruits are good but they are Sweet also. Patient does use continuous glucose monitor, has the pump and is being followed up by Endocrinology. Goal for hemoglobin A1c is 7-7.5 patient does follow-up with ophthalmology. Has a history of retinopathy. (2) HTN (hypertension): Comment: BP< 130/80 Code(s): I10 - Essential (primary) hypertension Category: Medical Qualifiers: Hypertension type: primary hypertension Qualified Code(s): I10 - Essential (primary) hypertension Plan: Continue with blood pressure medication. Decrease salt intake and exercise patient is on carvedilol 18.75 mg twice a day lisinopril 20 mg once a day (3) Hypercholesteremia: Code(s): E78.00 - Pure hypercholesterolemia, unspecified Category: Medical Plan: Avoid fried foods, chicken skin, eggs, butter margarine, pastries and meat. Be it pork or beef they have a lot of cholesterol LDL goal of less than 70. Patient on rosuvastatin 40 mg once a day and Zetia 10 mg once a day (4) Coronary artery disease: Comment: Dr. Patel Code(s): I25.10 - Atherosclerotic heart disease of nikolai coronary artery without angina pectoris Category: Medical Qualifiers: Associated angina: without angina Coronary Disease-Associated Artery/Lesion type: nikolai artery [place] vs. transplanted heart: nikolai heart Qualified Code(s): I25.10 - Atherosclerotic heart disease of nikolai coronary artery without angina pectoris Plan: Control the cholesterol, weight, blood pressure, diabetes continue with aspirin 81 mg once a day (5) Microalbuminuria: Code(s): R80.9 - Proteinuria, unspecified Category: Medical Plan: Patient on lisinopril 20 mg once a day Plan History of Present Illness The patient is a 69-year-old male presenting for a follow-up visit. The patient has a history of diabetes mellitus type 1 and is currently using a continuous glucose monitor. His last hemoglobin A1c, recorded on May 18, was 7.7%. He has been followed by endocrinology, with the last visit on March 06, 2025. The patient also has a history of hypertension, for which his blood pressure medication was recently increased to 20 mg once a day. He has hypercholesterolemia, with an LDL level of 48 noted in the last blood work on January 30. The patient has coronary artery disease and is up to date with ophthalmology visits, with no active diabetic retinopathy noted during the last check-up in March 2025. He has a history of diabetic retinopathy, status post laser treatment. His last colon cancer screening was in 2021. [facility] - Colon cancer screening last performed in 2021 - Ophthalmology follow-up up to date with no active diabetic retinopathy Social History Review of Systems Physical Exam Results - Labs: Hemoglobin A1c 7.7% on May 18 - Labs: LDL 48 on January 30 - Labs: Creatinine 1.11 on January 30 Plan The patient will continue to monitor his blood glucose levels using the continuous glucose monitor and follow up with endocrinology as scheduled. His blood pressure medication has been adjusted to 20 mg once daily to better manage his hypertension. The patient should maintain regular follow-ups with ophthalmology to monitor for any changes in diabetic retinopathy. He is advised to continue with his current cholesterol management plan, given the LDL level of 48. A repeat colon cancer screening should be considered as per standard guidelines, given the last screening was in 2021. Patient was informed and verbally consented to the use of an ambient scribe for clinic note documentation during this visit. Discussion Notes Patient Instructions Orders: Orders AMB Hemoglobin A1c Today E10.65 - Type 1 diabetes mellitus with hyperglycemia Vitamin B12 and Folate 3 Months E10.65 - Type 1 diabetes mellitus with hyperglycemia Lipid Panel 3 Months E10.65 - Type 1 diabetes mellitus with hyperglycemia, E78.00 - Pure hypercholesterolemia, unspecified Ferritin 3 Months E10.65 - Type 1 diabetes mellitus with hyperglycemia Creatinine Urine 3 Months E10.65 - Type 1 diabetes mellitus with hyperglycemia, E11.65 - Type 2 diabetes mellitus with hyperglycemia IRON PROFILE 3 Months E10.65 - Type 1 diabetes mellitus with hyperglycemia Pneumococcal 20 Immunization Today Z23 - Encounter for immunization Comprehensive Met. Panel 3 Months E10.65 - Type 1 diabetes mellitus with hyperglycemia Hemoglobin A1c 3 Months E10.65 - Type 1 diabetes mellitus with hyperglycemia Free T4 (Free Thyroxine) 3 Months E10.65 - Type 1 diabetes mellitus with hyperglycemia Thyroid Stimulating Hormone 3 Months E10.65 - Type 1 diabetes mellitus with hyperglycemia Complete Blood Count Auto Diff 3 Months E10.65 - Type 1 diabetes mellitus with hyperglycemia Prostate Specific Antigen Scr 3 Months E10.65 - Type 1 diabetes mellitus with hyperglycemia Microalbumin, Random (w Creat) 3 Months E10.65 - Type 1 diabetes mellitus with hyperglycemia, E11.65 - Type 2 diabetes mellitus with hyperglycemia Reticulocyte Count 3 Months E10.65 - Type 1 diabetes mellitus with hyperglycemia
[2025-05-28 13:05] VITALS: BP 132/62; PULSE 56; TEMP 36.3; O2SAT 96; BMI 29.7
--- OUTSIDE RECORDS SUMMARY | 2025-05-28 13:54 | XMS_ITS | Clinical Summary ---
Author Organization [facility] Address [address] [facility] [address] [place] [address] Phone Care Team Providers Care Pre School Manager Name Role Phone Maritza Hoffman MD Primary Care Provider [phone] Allergies No known active allergies Medications aspirin [...] Diabetes: Visual Foot Exam 04/14/2023 Influenza Vaccine (#1) 2025 Hepatitis B Vaccine Aged Out No longe r eligible based on patient's age to complete this topic Insurance Medicare [facility] Medicare [facility] Care Teams Pre School Manager Relationship Specialty Start Date End Date Maritza Hoffman MD [facility] [place] [id number] [place] PCP - General Internal Medicine 08/24/23
--- OUTSIDE RECORDS SUMMARY | 2025-05-28 13:54 | XMS_ITS | Patient Health Record ---
Author Organization [facility] Address [address] [place] [address] Care Team Providers Care Insulation Blanket Maker Name Role Phone Sara Zamarripa MD Primary Care Provider Milton Blanca Unavailable [phone] Allergies No Known Allergies Reason For Referral No Information Medications Medication SIG (Take, Route, Frequency, Duration) Notes Start Date End Date Status Multivitamins Active Iron Not-Taking Vitamin D Active Atorvastatin Calcium 40 MG 1 tablet Oral ly Once a day for 30 day(s) Active HumaLOG Active Coreg Active Lisinopril Active Aspir-81 Active Fish Oil Active Vitamin E Active Vitamin B 12 Active Immunizations Vaccine Route Administration Date Status Comme nts Influenza Unknown 07/22/2021 Administered Problems Problem Type SNOMED Code ICD Code Onset Dates Problem Status W/U Status Risk Notes Problem Screening for malignant neoplasm of colon (909779066) Encounter for screening for malignant neoplasm of colon (Z12.11) Active confirmed Problem History of polyp of colon (643200381) Personal history of colonic polyps (Z86.010) Active confirmed Problem Pre-procedure evaluation check (124780533) Encounter for other preprocedural examination (Z01.818) Active confirmed Problem Long-term current use of antiplatelet drug (633149542357272) 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 (Z79.82) Active confirmed Problem Diverticulosis of colon (844065869) Diverticulosis of colon (K57.30) Active confirmed Plan Of Treatment Pending Test Test Name Order Date Pathology 03/18/2022 Future Test Test Name Order Date COLONOSCOPY 03/09/2013 COLONOSCOPY 02/13/2022 Insurance Providers Payer Name Payer Address Payer Phone Subscriber Number Group Number Insured Name Patient Relationship to Insured Coverage Start Date Coverage End Date MEDICARE OF [place] [address] [place] [address] [phone] [id number] ANJALI JASON Self - patient is the insured [facility] [address] [place], [place] [id number] ANJALILILLY WARRENARD Self - patient is the insured Medical (General) History Medical History History ICD Code Colonoscopy 02/07/2007-1 sma ll tubular adenoma removed-sigmoid diverticuloosis and internal hemorrhoids noted as well IDDM--has an Insulin pump Hyperlipidemia IN 09/2007--has 1 stent--no problems sin ce Denies CVA,Lung disease,renal disease Negative colonoscopy in 05/2013 Surgical History Surgery Date(Month/Year)
== END 2025-05-28 13:30 | disposition home or self-care (01) ==
LOC: HO.HMCH 12:48
PROVIDERS: PCP Internal Medicine; Visit Provider Internal Medicine
DX: E10.65 Type 1 diabetes mellitus with hyperglycemia (principal); I10 Essential (primary) hypertension; E78.00 Pure hypercholesterolemia, unspecified; I25.10 Atherosclerotic heart disease of native coronary artery without angina pectoris; R80.9 Proteinuria, unspecified; Z23 Encounter for immunization

== ENCOUNTER → 2025-05-28 12:47 | Outpatient (BNVA) | payer MEDICARE, BC, SELFPAY | PROVIDERS: PCP Internal Medicine; Visit Provider Internal Medicine | DX: Z23 Encounter for immunization (principal); E10.65 Type 1 diabetes mellitus with hyperglycemia; I10 Essential (primary) hypertension; E78.00 Pure hypercholesterolemia, unspecified; I25.10 Atherosclerotic heart disease of native coronary artery without angina pectoris; R80.9 Proteinuria, unspecified | CPT/HCPCS: 83036; 90471; 90677; 99212 ==